=== PATIENT | female | born 1970 | race African-American/Black ===

== ENCOUNTER 2017-09-24 11:46 | Inpatient (IN) | payer OTHER ==
[2017-09-24 11:54] VITALS: BMI 25.5
--- NOTE | 2017-09-24 15:25 | HP ---
CIWA Score - CIWA Score Nausea/Vomitin Muscle Tremors: 3 Anxiety: 3 Agitation: 3 Paroxysmal Sweats: 2 Orientation: 0-Oriented Tacttile Disturbances: 2-Mild Itch/Numbness/Burn Auditory Disturbances: 2-Mild Harshness/Frighten Visual Disturbances: 2-Mild Sensitivity Headache: 2-Mild CIWA-Ar Total Score: 22 Admission ROS BHS - HPI Chief Complaint: I NEED TO STOP DRINKING ALCOHOL AND COCAINE Allergies/Adverse Reactions: Allergies Allergy/AdvReac Type Severity Reaction Status Date / Time No Known Allergies Allergy Verified 09/24/17 15:23 History of Present Illness: THIS 46 YEARS OLD FEMALE WITH ALCOHOL AND CCOAINE DEPENDENCE,SEEKIG DETOX, WITHDRAWAL SYMPTOM,LAST DETOX 07/22 [facility], [facility] MULTIPLE ADMISSIONS IN DETOX TRAUMA TO RIGHT ORBIT 10 DAYS AGO SEEN IN [facility] HAD CAT SCAN DONE NEGATIVE ANXIETY,DEPRESSION,INSOMNIA NICOTINE DEPENDENCE WEIGHT LOSS LONGEST PERIOD OF SOBRIETY 3 YEARS Exam Limitations: No Limitations - Ebola screening Have you traveled outside of the country in the last 21 days: No Have you had contact with anyone from an Ebola affected area: No Have you been sick,other than usual withdrawal symptoms: No Do you have a fever: No - Review of Systems Constitutional: Loss of Appetite, Malaise, Night Sweats, Changes in sleep, Weakness, Unintentional Wgt. Loss EENT: reports: Nose Congestion (ECCHYMOSIS OF ORBIT SUBCONJUNCTIVAL HEMORRHAGE RIGHT MOVEMENT OF EYE BALL NO LIMITAION NO DIPLOPIA VISION NORMAL NO NUMBNESS OF INFRAORBITAL AREA) Respiratory: reports: No Symptoms reported Cardiac: reports: Palpitations GI: reports: Diarrhea, Nausea, Vomiting, Abdominal cramping : reports: No Symptoms Reported Musculoskeletal: reports: Back Pain, Muscle Pain Integumentary: reports: Dryness Neuro: reports: Tremors Endocrine: reports: No Symptoms Reported Hematology: reports: No Symptoms Reported Psychiatric: reports: Anxious (INSOMNIA), Depressed Patient History - Patient Medical History Hx Anemia: Yes (NO MED) Hx Asthma: No Hx Chronic Obstructive Pulmonary Disease (COPD): No Hx Cancer: No Hx Cardiac Disorders: No Hx Congestive Heart Failure: No Hx Hypertension: No Hx Hypercholesterolemia: No Hx Pacemaker: No HX Cerebrovascular Accident: No Hx Seizures: No Hx Dementia: No Hx Diabetes: No Hx Gastrointestinal Disorders: No Hx Liver Disease: No Hx Genitourinary Disorders: No Hx Sexually Transmitted Disorders: No Hx Renal Disease (ESRD): No Hx Thyroid Disease: No Hx Human Immunodeficiency Virus (HIV): No (LAST TESTED 07/22 NRGATIVE) Hx Hepatitis C: No (last tested 04/18) Hx Depression: Yes (INSOMNIA) Hx Suicide Attempt: No Hx Bipolar Disorder: No Hx Schizophrenia: No Other Medical History: ANXIETY,WEIGHT LOSS,NO SUICIDAL,NO HOMICIDAL - Patient Surgical History Past Surgical History: No Hx Neurologic Surgery: No Hx Cataract Extraction: No Hx Cardiac Surgery: No Hx Lung Surgery: No Hx Breast Surgery: No Hx Breast Biopsy: No Hx Abdominal Surgery: No Hx Appendectomy: No Hx Cholecystectomy: No Hx Genitourinary Surgery: No Hx Section: No Hx Orthopedic Surgery: No Anesthesia Reaction: No - PPD History Previous Implant?: Yes Documented Results: Negative w/o proof Implanted On Prior [facility] Admission?: Yes Date: 08/05/15 PPD to be Administered?: Yes - Reproductive History Patient is a Female of Child Bearing Age (11 -55 yrs old): Yes Last Menstrual Period: 07/08/15 Patient : No - Smoking Cessation Smoking history: Current every day smoker Have you smoked in the past 12 months: Yes Aproximately how many cigarettes per day: 10 Hx Chewing Tobacco Use: No Initiated information on smoking cessation: Yes 'Breaking Loose' booklet given: 09/24/17 - Substance & Tx. History Hx Alcohol Use: Yes Hx Substance Use: Yes Substance Use Type: Alcohol, Cocaine Hx Substance Use Treatment: Yes (07/22 [facility]) - Substances Abused Alcohol Route: Oral Frequency: Daily Amount used: 2 pints vodka/12 pk beers Age of first use: 22 Date of Last Use: 09/24/17 Crack Route: Smoking Frequency: Daily Amount used: $100 Age of first use: 40 Date of Last Use: 09/22/17 Family Disease History - Family Disease History Family Disease History: Heart Disease: Mother (colon; HTN), CA: Father (prostate ), Mother Admission Physical Exam BHS - Vital Signs Vital Signs: Vital Signs - 24 hr 09/24/17 11:47 Temperature 96.9 F L Pulse Rate 109 H Respiratory 18 Rate Blood Pressure 145/97 - Physical General Appearance: Yes: Moderate Distress, Tremorous, Irritable, Sweating, Anxious HEENTM: Yes: Normal ENT Inspection, CYNDI, Pharynx Normal, Other (ECCHYMOSIS OF ORBIT VISION [place] SUBCONJUNCTIVAL HEMORRHAGE RIGHT NO DIPLOPIA NO NUMBNESS OF INFRAORBITAL AREA MOVEMENT OF EYE BALL NO LIMITATION) Respiratory: Yes: Lungs Clear, Normal Breath Sounds, No Respiratory Distress Neck: Yes: Within Normal Limits, Supple, Trachea in good position Breast: Yes: Breast Exam Deferred Cardiology: Yes: Tachycardia Abdominal: Yes: Within Normal Limits, Normal Bowel Sounds, Non Tender, Soft Genitourinary: Yes: Within Normal Limits Back: Yes: Muscle Spasm Musculoskeletal: Yes: Back pain, Muscle Pain Extremities: Yes: Normal Range of Motion, Tremors Neurological: Yes: cylinder filler II-XII NML intact, Fully Oriented, Alert, Motor Strength 5/5 Integumentary: Yes: Dry Lymphatic: Yes: Within Normal Limits - Diagnostic (1) Alcohol dependence with uncomplicated withdrawal Current Visit: Yes Status: Acute (2) Cocaine dependence Current Visit: Yes Status: Acute (3) Nicotine dependence Current Visit: Yes Status: Acute Qualifiers: Nicotine product type: cigarettes Substance use status: uncomplicated Qualified Code(s): F17.210 - Nicotine dependence, cigarettes, uncomplicated (4) History of anemia Current Visit: Yes Status: Acute (5) Weight loss Current Visit: Yes Status: Acute (6) Contusion of orbit Current Visit: Yes Status: Acute (7) Subconjunctival hemorrhage of right eye Current Visit: Yes Status: Acute (8) Insomnia secondary to depression with anxiety Current Visit: Yes Status: Acute Cleared for Admission [facility] - Detox or Rehab [facility] Level of Care: Medically Managed Detox Regimen/Protocol: Librium [facility] Breath Alcohol Content Breath Alcohol Content: 0.105 Urine Drug Screen - Results Drug Screen Negative: No Urine Drug Screen Results: ITA-Cocaine
[2017-09-24] MEDS ORDERED: MAGNESIUM HYDROX 2400MG/30ML ORAL SUSPENSION 30 ML CUP PO PRN (15:47)
[2017-09-24] MEDS ORDERED: MAG HYDROX/AL HYDROX/SIMETH 30 ML UNIT-DOSE CUP PO PRN (15:47)
[2017-09-24] MEDS ORDERED: P-EPHED 60MG/TRIPROLIDI 2.5MG TABLET PO PRN (15:47)
[2017-09-24] MEDS ORDERED: MAGNESIUM CITRATE 300 ML BOTTLE PO PRN (15:47)
[2017-09-24] MEDS ORDERED: MENTHOL/PHENOL 1 EACH UD MM PRN (15:47)
[2017-09-24] MEDS ORDERED: guaiFENesin/D-METHORPHAN HB 10 ML UNIT-DOSE CUPS PO PRN (15:47)
[2017-09-24] MEDS ORDERED: NICOTINE POLACRILEX 2 MG GUM BC PRN (15:47)
[2017-09-24] MEDS ORDERED: hydrOXYzine PAMOATE 25 MG CAPSULE (FP) PO PRN (15:47)
[2017-09-24] MEDS ORDERED: ACETAMINOPHEN 325 MG TABLET (FP) PO PRN (15:47)
[2017-09-24] MEDS ORDERED: chlordiazePOXIDE HCL 25 MG CAPSULE PO PRN (15:47)
[2017-09-24] MEDS ORDERED: LOPERAMIDE HCL 2 MG CAPSULE PO PRN (15:47)
[2017-09-24] MEDS ORDERED: IBUPROFEN 400 MG TABLET (FP) PO PRN (15:47)
[2017-09-24] MEDS ORDERED: chlordiazePOXIDE HCL 25 MG CAPSULE PO ONE (16:30)
[2017-09-24] MEDS: NICOTINE 21 MG/24 HOURS TOPICAL PATCH TD SCH (17:25)
[2017-09-24] MEDS: chlordiazePOXIDE HCL 25 MG CAPSULE PO SCH ×2 (17:25→22:18)
[2017-09-24] MEDS: THIAMINE HCL 100 MG TABLET (FP) PO SCH (22:18)
[2017-09-24] MEDS: MELATONIN 5 MG TABLETS PO SCH (22:18)
[2017-09-24 23:30] LABS: URINE APPEARANCE CLEAR; URINE BILIRUBIN NEGATIVE (<2.0 mg/dL); URINE BLOOD NEGATIVE (NEGATIVE); URINE COLOR STRAW; URINE GLUCOSE (UA) NEGATIVE (NEGATIVE); URINE KETONE NEGATIVE (NEGATIVE); URINE LEUK ESTERASE NEGATIVE (NEGATIVE); URINE NITRITE NEGATIVE (NEGATIVE); URINE PROTEIN NEGATIVE (NEGATIVE); URINE UROBILINOGEN NEGATIVE mg/dL (0.2-1.0)
[2017-09-25] MEDS: chlordiazePOXIDE HCL 25 MG CAPSULE PO SCH ×4 (07:19→22:50)
[2017-09-25 09:53] LABS: HEMATOCRIT 35.2 % (32.4-45.2); HEMOGLOBIN 11.5 GM/dL (10.7-15.3); MCH 30.5 pg (25.7-33.7); MCHC 32.8 g/dl (32.0-36.0); MEAN CELL VOLUME 93.2 fl (80-96); MEAN PLT VOLUME 8.2 fl (7.5-11.1); PLATELET COUNT 312 K/MM3 (134-434); RBC 3.78 M/mm3 (3.60-5.2); WHITE BLOOD COUNT 6.4 K/mm3 (4.0-10.0)
[2017-09-25 10:11] LABS: CHLORIDE 104 mmol/L (98-107); POTASSIUM 3.5 mmol/L (3.5-5.1); SODIUM 140 mmol/L (136-145)
[2017-09-25] MEDS: PRENATAL VITAMINS W/ FOLIC ACID TABLET (FP) PO SCH (10:21)
[2017-09-25] MEDS: NICOTINE 21 MG/24 HOURS TOPICAL PATCH TD SCH (10:21)
[2017-09-25 10:34] LABS: ALBUMIN 3.5 g/dl (3.4-5.0); ALK PHOS 94 U/L (45-117); ANION GAP 14 (8-16); BILIRUBIN,TOTAL 0.4 mg/dL (0.2-1.0); BLOOD UREA NITROGEN 3 mg/dL (7-18); CALCIUM 8.6 mg/dL (8.5-10.1); CO2 22 mmol/L (21-32); CREATININE 0.7 mg/dL (0.55-1.02); GLUCOSE,RANDOM 145 mg/dL (74-106); SGOT/AST 34 U/L (15-37); SGPT/ALT 31 U/L (12-78)
--- NOTE | 2017-09-25 14:54 | PN ---
S CIWA - CIWA Score Nausea/Vomitin Muscle Tremors: 3 Anxiety: 3 Agitation: 3 Paroxysmal Sweats: 3 Orientation: 0-Oriented Tacttile Disturbances: 0-None Auditory Disturbances: 0-None Visual Disturbances: 0-None Headache: 0-None Present CIWA-Ar Total Score: 15 S Progress Note (SOAP) Subjective: shakes sweats sleep disturbance Objective: 09/25/17 14:51 A 7 O x 3 R eye redness and R eye periorbital echymosis Vital Signs Temperature 97.1 F L 09/25/17 14:00 Pulse Rate 86 09/25/17 14:00 Respiratory Rate 16 09/25/17 14:00 Blood Pressure 147/88 09/25/17 14:00 O2 Sat by Pulse Oximetry (%) Laboratory Last Values WBC 6.4 K/mm3 (4.0-10.0) D 09/25/17 06:00 RBC 3.78 M/mm3 (3.60-5.2) 09/25/17 06:00 Hgb 11.5 GM/dL (10.7-15.3) 09/25/17 06:00 Hct 35.2 % (32.4-45.2) 09/25/17 06:00 MCV 93.2 fl (80-96) 09/25/17 06:00 MCH 30.5 pg (25.7-33.7) 09/25/17 06:00 MCHC 32.8 g/dl (32.0-36.0) 09/25/17 06:00 RDW 15.0 % (11.6-15.6) 09/25/17 06:00 Plt Count 312 K/MM3 (134-434) D 09/25/17 06:00 MPV 8.2 fl (7.5-11.1) 09/25/17 06:00 Sodium 140 mmol/L (136-145) 09/25/17 06:00 Potassium 3.5 mmol/L (3.5-5.1) 09/25/17 06:00 Chloride 104 mmol/L (98-107) 09/25/17 06:00 Carbon Dioxide 22 mmol/L (21-32) 09/25/17 06:00 Anion Gap 14 (8-16) 09/25/17 06:00 BUN 3 mg/dL (7-18) L 09/25/17 06:00 Creatinine 0.7 mg/dL (0.55-1.02) 09/25/17 06:00 Creat Clearance w eGFR > 60 (>60) 09/25/17 06:00 Random Glucose 145 mg/dL (74-106) H 09/25/17 06:00 Calcium 8.6 mg/dL (8.5-10.1) 09/25/17 06:00 Total Bilirubin 0.4 mg/dL (0.2-1.0) D 09/25/17 06:00 AST 34 U/L (15-37) 09/25/17 06:00 ALT 31 U/L (12-78) 09/25/17 06:00 Alkaline Phosphatase 94 U/L (45-117) 09/25/17 06:00 Total Protein 8.0 g/dl (6.4-8.2) 09/25/17 06:00 Albumin 3.5 g/dl (3.4-5.0) 09/25/17 06:00 Urine Color Straw 09/24/17 Unknown Urine Appearance Clear 09/24/17 Unknown Urine pH 6.0 (5.0-8.0) 09/24/17 Unknown Ur Specific [place] 1.004 (1.001-1.035) 09/24/17 Unknown Urine Protein Negative (NEGATIVE) 09/24/17 Unknown Urine Glucose (UA) Negative (NEGATIVE) 09/24/17 Unknown Urine Ketones Negative (NEGATIVE) 09/24/17 Unknown Urine Blood Negative (NEGATIVE) 09/24/17 Unknown Urine Nitrite Negative (NEGATIVE) 09/24/17 Unknown Urine Bilirubin Negative (<2.0 mg/dL) 09/24/17 Unknown Urine Urobilinogen Negative mg/dL (0.2-1.0) 09/24/17 Unknown Ur Leukocyte Esterase Negative (NEGATIVE) 09/24/17 Unknown labs noted Assessment: 09/25/17 14:54 withdrawal sx Plan: continue detox
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
[2017-09-25] MEDS: THIAMINE HCL 100 MG TABLET (FP) PO SCH (22:50)
[2017-09-25] MEDS: ZOLPIDEM TARTRATE 5 MG TABLET PO PRN (22:50)
[2017-09-25] MEDS: MELATONIN 5 MG TABLETS PO SCH (22:51)
[2017-09-26] MEDS: chlordiazePOXIDE HCL 25 MG CAPSULE PO SCH ×2 (06:08→10:28)
[2017-09-26] MEDS: PRENATAL VITAMINS W/ FOLIC ACID TABLET (FP) PO SCH (10:28)
[2017-09-26] MEDS: NICOTINE 21 MG/24 HOURS TOPICAL PATCH TD SCH (10:28)
--- NOTE | 2017-09-26 10:56 | PN ---
[facility] CIWA - CIWA Score Nausea/Vomitin-Mild Nausea/No Vomiting Muscle Tremors: 4-Moderate,w/Arms Extend Anxiety: 4-Mod. Anxious/Guarded Agitation: 4-Moderately Restless Paroxysmal Sweats: 1-Minimal Palms Moist Orientation: 0-Oriented Tacttile Disturbances: 0-None Auditory Disturbances: 0-None Visual Disturbances: 0-None Headache: 0-None Present CIWA-Ar Total Score: 14 BHS Progress Note (SOAP) Subjective: mild gi distress sweat tremor sleeplessness anxiety irritable restlessness Objective: 09/26/17 10:55 Vital Signs Temperature 97.9 F 09/26/17 06:00 Pulse Rate 83 09/26/17 07:27 Respiratory Rate 18 09/26/17 07:27 Blood Pressure 138/75 09/26/17 07:27 O2 Sat by Pulse Oximetry (%) Laboratory Last Values WBC 6.4 K/mm3 (4.0-10.0) D 09/25/17 06:00 RBC 3.78 M/mm3 (3.60-5.2) 09/25/17 06:00 Hgb 11.5 GM/dL (10.7-15.3) 09/25/17 06:00 Hct 35.2 % (32.4-45.2) 09/25/17 06:00 MCV 93.2 fl (80-96) 09/25/17 06:00 MCH 30.5 pg (25.7-33.7) 09/25/17 06:00 MCHC 32.8 g/dl (32.0-36.0) 09/25/17 06:00 RDW 15.0 % (11.6-15.6) 09/25/17 06:00 Plt Count 312 K/MM3 (134-434) D 09/25/17 06:00 MPV 8.2 fl (7.5-11.1) 09/25/17 06:00 Sodium 140 mmol/L (136-145) 09/25/17 06:00 Potassium 3.5 mmol/L (3.5-5.1) 09/25/17 06:00 Chloride 104 mmol/L (98-107) 09/25/17 06:00 Carbon Dioxide 22 mmol/L (21-32) 09/25/17 06:00 Anion Gap 14 (8-16) 09/25/17 06:00 BUN 3 mg/dL (7-18) L 09/25/17 06:00 Creatinine 0.7 mg/dL (0.55-1.02) 09/25/17 06:00 Creat Clearance w eGFR > 60 (>60) 09/25/17 06:00 Random Glucose 145 mg/dL (74-106) H 09/25/17 06:00 Calcium 8.6 mg/dL (8.5-10.1) 09/25/17 06:00 Total Bilirubin 0.4 mg/dL (0.2-1.0) D 09/25/17 06:00 AST 34 U/L (15-37) 09/25/17 06:00 ALT 31 U/L (12-78) 09/25/17 06:00 Alkaline Phosphatase 94 U/L (45-117) 09/25/17 06:00 Total Protein 8.0 g/dl (6.4-8.2) 09/25/17 06:00 Albumin 3.5 g/dl (3.4-5.0) 09/25/17 06:00 Urine Color Straw 09/24/17 Unknown Urine Appearance Clear 09/24/17 Unknown Urine pH 6.0 (5.0-8.0) 09/24/17 Unknown Ur Specific [place] 1.004 (1.001-1.035) 09/24/17 Unknown Urine Protein Negative (NEGATIVE) 09/24/17 Unknown Urine Glucose (UA) Negative (NEGATIVE) 09/24/17 Unknown Urine Ketones Negative (NEGATIVE) 09/24/17 Unknown Urine Blood Negative (NEGATIVE) 09/24/17 Unknown Urine Nitrite Negative (NEGATIVE) 09/24/17 Unknown Urine Bilirubin Negative (<2.0 mg/dL) 09/24/17 Unknown Urine Urobilinogen Negative mg/dL (0.2-1.0) 09/24/17 Unknown Ur Leukocyte Esterase Negative (NEGATIVE) 09/24/17 Unknown RPR Titer Nonreactive (NONREACTIVE) 09/25/17 06:00 lab noted Assessment: 09/26/17 10:55 withdrawal sx Plan: continue detox
[2017-09-26] MEDS: chlordiazePOXIDE 5 MG CAPSULE PO SCH ×2 (17:54→22:24)
[2017-09-26] MEDS: THIAMINE HCL 100 MG TABLET (FP) PO SCH (22:24)
[2017-09-26] MEDS: MELATONIN 5 MG TABLETS PO SCH (22:24)
[2017-09-26] MEDS: ZOLPIDEM TARTRATE 5 MG TABLET PO PRN (22:25)
[2017-09-27] MEDS: chlordiazePOXIDE 5 MG CAPSULE PO SCH ×2 (06:24→10:18)
--- NOTE | 2017-09-27 09:15 | EKG ---
Test Reason : Blood Pressure : / mmHG Vent. Rate : 099 BPM Atrial Rate : 099 BPM P-R Int : 168 ms QRS Dur : 086 ms QT Int : 356 ms P-R-T Axes : 045 011 042 degrees QTc Int : 456 ms NORMAL SINUS RHYTHM POSSIBLE LEFT ATRIAL ENLARGEMENT BORDERLINE ECG NO PREVIOUS ECGS AVAILABLE Confirmed by RACHEL FARIAS MD ([id number]) on 09/27/2017 9:15:05 AM Referred By: Confirmed By:RACHEL FARIAS MD
--- NOTE | 2017-09-27 09:50 | PN ---
S Progress Note (SOAP) Subjective: ALERT,NO COMPLAINT Objective: 09/27/17 09:49 Vital Signs Temperature 97.7 F 09/27/17 06:53 Pulse Rate 84 09/27/17 06:53 Respiratory Rate 16 09/27/17 06:53 Blood Pressure 134/89 09/27/17 06:53 O2 Sat by Pulse Oximetry (%) Assessment: 09/27/17 09:49 STABLE,NO WITHDRAWAL SYMPTOM Plan: DISCHARGE TODAY FOR REVELATION
--- NOTE | 2017-09-27 09:55 | DS ---
[facility] Detox Discharge Summary Admission Date: 09/24/17 Discharge Date: 09/27/17 - History Present History: Alcohol Dependence, Cocaine Dependence Additional Comments: FOLLOW UP WITH [facility] Pertinent Past History: CONTUSION OF RIGHT ORBIT HISTORY OF ANEMIA NICOTINE DEPENDENCE WEIGHT LOSS - Physical Exam Results Vital Signs: Vital Signs Temperature 97.7 F 09/27/17 06:53 Pulse Rate 84 09/27/17 06:53 Respiratory Rate 16 09/27/17 06:53 Blood Pressure 134/89 09/27/17 06:53 O2 Sat by Pulse Oximetry (%) Pertinent Admission Physical Exam Findings: WITHDRAWAL SIGNS AND SYMPTOM Vital Signs Temperature 97.7 F 09/27/17 06:53 Pulse Rate 84 09/27/17 06:53 Respiratory Rate 16 09/27/17 06:53 Blood Pressure 134/89 09/27/17 06:53 O2 Sat by Pulse Oximetry (%) - Treatment Hospital Course: Detox Protocol Followed, Detoxed Safely, Responded well, Discharged Condition Good, Rehab Referral Accepted Patient has Accepted a Rehab Referral to: [facility] - Medication Discharge Medications: Ambulatory Orders NK [No Known Home Medication] 08/03/15 - Diagnosis (1) Alcohol dependence with uncomplicated withdrawal Current Visit: Yes Status: Acute (2) Cocaine dependence Current Visit: Yes Status: Acute (3) Nicotine dependence Current Visit: Yes Status: Acute Qualifiers: Nicotine product type: cigarettes Substance use status: uncomplicated Qualified Code(s): F17.210 - Nicotine dependence, cigarettes, uncomplicated (4) History of anemia Current Visit: Yes Status: Acute (5) Weight loss Current Visit: Yes Status: Acute (6) Contusion of orbit Current Visit: Yes Status: Acute (7) Subconjunctival hemorrhage of right eye Current Visit: Yes Status: Acute (8) Insomnia secondary to depression with anxiety Current Visit: Yes Status: Acute - AMA Did Patient Leave Against Medical Advice: No
[2017-09-27 09:57] VITALS: TEMP 98.1
[2017-09-27] MEDS: PRENATAL VITAMINS W/ FOLIC ACID TABLET (FP) PO SCH (10:17)
[2017-09-27] MEDS: NICOTINE 21 MG/24 HOURS TOPICAL PATCH TD SCH (10:18)
[2017-09-27 13:24] VITALS: BP 117/74; PULSE 99
[2017-09-27] MEDS ORDERED: chlordiazePOXIDE HCL 10 MG CAPSULE PO SCH (17:00)
== END 2017-09-27 14:20 | disposition other institution (70) | DRG 774 ==
LOC: YASAS 11:46 → Y6N 15:39
PROVIDERS: ADMIT Internal Medicine; ATTEND Internal Medicine
PROC: HZ2ZZZZ Detoxification Services for Substance Abuse Treatment (ICD-10-PCS; principal; 2017-09-24)
DX: F10.230 Alcohol dependence with withdrawal, uncomplicated (principal); F10.24 Alcohol dependence with alcohol-induced mood disorder; F14.20 Cocaine dependence, uncomplicated; F17.210 Nicotine dependence, cigarettes, uncomplicated; F51.05 Insomnia due to other mental disorder; G47.00 Insomnia, unspecified; R00.0 Tachycardia, unspecified; H11.31 Conjunctival hemorrhage, right eye; S05.11XD Contusion of eyeball and orbital tissues, right eye, subsequent encounter; Y04.0XXD Assault by unarmed brawl or fight, subsequent encounter; Z86.2 Personal history of diseases of the blood and blood-forming organs and certain disorders involving the immune mechanism; Z87.898 Personal history of other specified conditions; Z95.0 Presence of cardiac pacemaker
CPT/HCPCS: 36415; 80053; 81003; 85027; 86593; 93005; 93010

== ENCOUNTER 2018-04-30 09:51 | Inpatient (IN) | payer OTHER ==
[2018-04-30 10:05] VITALS: BMI 23.5
--- NOTE | 2018-04-30 10:27 | HP ---
CIWA Score - CIWA Score Nausea/Vomitin Muscle Tremors: 4-Moderate,w/Arms Extend Anxiety: 4-Mod. Anxious/Guarded Agitation: 4-Moderately Restless Paroxysmal Sweats: 1-Minimal Palms Moist Orientation: 1-Uncertain about Date Tacttile Disturbances: 1-Very Mild Itch/Numbness Auditory Disturbances: 0-None Visual Disturbances: 0-None Headache: 2-Mild CIWA-Ar Total Score: 19 Admission ROS BHS - HPI Chief Complaint: I need help, I really can't stop drinking, I should have done rehab last time, I got to get something soon, I feel sick Allergies/Adverse Reactions: Allergies Allergy/AdvReac Type Severity Reaction Status Date / Time No Known Allergies Allergy Verified 04/30/18 10:02 History of Present Illness: 47yo woman here for detox from alcohol, also using crack. This is one of several admissions for treatment. Denies seizures but has had black outs. tremorous, restless Exam Limitations: Clinical Condition - Ebola screening Have you been sick,other than usual withdrawal symptoms: No - Review of Systems Constitutional: Chills, Loss of Appetite, Malaise, Changes in sleep, Weakness, Unintentional Wgt. Loss EENT: reports: Blurred Vision Respiratory: reports: No Symptoms reported Cardiac: reports: No Symptoms Reported GI: reports: Nausea, Poor Appetite, Poor Fluid Intake, Indigestion, Abdominal cramping : reports: Frequency Musculoskeletal: reports: No Symptoms Reported Integumentary: reports: Rash (mild facial rash) Neuro: reports: Headache, Tremors Endocrine: reports: No Symptoms Reported Hematology: reports: No Symptoms Reported Psychiatric: reports: Judgement Intact, Mood/Affect Appropiate, Anxious Other Systems: Reviewed and Negative Patient History - Patient Medical History Hx Anemia: No Hx Asthma: No Hx Chronic Obstructive Pulmonary Disease (COPD): No Hx Cancer: No Hx Cardiac Disorders: No Hx Congestive Heart Failure: No Hx Hypertension: Yes (when detox) Hx Hypercholesterolemia: No Hx Pacemaker: No HX Cerebrovascular Accident: No Hx Seizures: No Hx Dementia: No Hx Diabetes: No Hx Gastrointestinal Disorders: No Hx Liver Disease: No Hx Genitourinary Disorders: No Hx Sexually Transmitted Disorders: No Hx Renal Disease (ESRD): No Hx Thyroid Disease: No Hx Human Immunodeficiency Virus (HIV): No (LAST TESTED 07/22 NRGATIVE) Hx Hepatitis C: No (last tested 04/18) Hx Depression: Yes (with anxiety, insomnia) Hx Suicide Attempt: No Hx Bipolar Disorder: No Hx Schizophrenia: No Other Medical History: rosacea - Patient Surgical History Past Surgical History: No Hx Neurologic Surgery: No Hx Cataract Extraction: No Hx Cardiac Surgery: No Hx Lung Surgery: No Hx Breast Surgery: No Hx Breast Biopsy: No Hx Abdominal Surgery: No Hx Appendectomy: No Hx Cholecystectomy: No Hx Genitourinary Surgery: No Hx Section: No Hx Orthopedic Surgery: No Other Surgical History: L foot sx in 2016 from dog bite. Anesthesia Reaction: No - PPD History Previous Implant?: Yes Documented Results: Negative w/proof Implanted On Prior [facility] Admission?: Yes Date: 09/26/17 Results: negative PPD to be Administered?: No - Reproductive History Patient is a Female of Child Bearing Age (11 -55 yrs old): Yes Last Menstrual Period: 04/06/18 Patient : No - Smoking Cessation Smoking history: Current every day smoker Have you smoked in the past 12 months: Yes Aproximately how many cigarettes per day: 20 Hx Chewing Tobacco Use: No Initiated information on smoking cessation: Yes 'Breaking Loose' booklet given: 04/30/18 (give on floor) - Substance & Tx. History Hx Alcohol Use: Yes Hx Substance Use: Yes Substance Use Type: Alcohol, Cocaine Hx Substance Use Treatment: Yes (detox, rehab) - Substances Abused Alcohol Route: Oral Frequency: Daily Amount used: 2 pints of vodka, 12 cans of beer (24 ounces ) Age of first use: 21 Date of Last Use: 04/30/18 Crack Route: Smoking Frequency: Daily Amount used: $100 Age of first use: 37 Date of Last Use: 04/30/18 Family Disease History - Family Disease History Family Disease History: Heart Disease: Mother (,colon; HTN), [place]: Father (decedased, prostate), Mother, Other: Brother (three - healthy (one drinks)), Sister (one - healthy) Admission Physical Exam BHS - Vital Signs Vital Signs: Vital Signs - 24 hr 04/30/18 09:55 Temperature 98.3 F Pulse Rate 86 Respiratory 18 Rate Blood Pressure 143/103 H - Physical General Appearance: Yes: Nourished, Appropriately Dressed, Moderate Distress, Thin, Tremorous, Sweating, Anxious HEENTM: Yes: EOMI, Hearing grossly Normal, Normocephalic, Normal Voice, Pharynx Normal Respiratory: Yes: Normal Breath Sounds, No Respiratory Distress Neck: Yes: No masses,lesions,Nodules, Supple Breast: Yes: Breast Exam Deferred Cardiology: Yes: Regular Rhythm, Regular Rate Abdominal: Yes: Flat Genitourinary: Yes: Frequency Back: Yes: Normal Inspection Musculoskeletal: Yes: full range of Motion, Gait Steady Extremities: Yes: Normal Capillary Refill, Normal Inspection, Normal Range of Motion, Non-Tender, Tremors Neurological: Yes: Alert, Motor Strength 5/5, Normal Mood/Affect, Normal Response Integumentary: Yes: Normal Color, Warm, Rash (mild erythematous rash over nose) Lymphatic: Yes: Within Normal Limits - Diagnostic (1) Alcohol dependence with uncomplicated withdrawal Current Visit: Yes Status: Acute (2) Cocaine dependence Current Visit: Yes Status: Chronic (3) Weight loss Current Visit: Yes Status: Chronic (4) Nicotine dependence Current Visit: Yes Status: Chronic Qualifiers: Nicotine product type: cigarettes Substance use status: uncomplicated Qualified Code(s): F17.210 - Nicotine dependence, cigarettes, uncomplicated (5) Rosacea Current Visit: Yes Status: Chronic Cleared for Admission [facility] - Detox or Rehab [facility] Level of Care: Medically Managed Detox Regimen/Protocol: Librium [facility] Breath Alcohol Content Breath Alcohol Content: 0 Urine Pregancy Test - Result Urine Test Results: Negative- NO Line Present Urine Drug Screen - Results Drug Screen Negative: No Urine Drug Screen Results: ITA-Cocaine, BZO-Benzodiazepines
[2018-04-30] MEDS ORDERED: ACETAMINOPHEN 325 MG TABLET (FP) PO PRN (10:33)
[2018-04-30] MEDS ORDERED: chlordiazePOXIDE HCL 25 MG CAPSULE PO PRN (10:33)
[2018-04-30] MEDS ORDERED: IBUPROFEN 400 MG TABLET (FP) PO PRN (10:33)
[2018-04-30] MEDS ORDERED: P-EPHED 60MG/TRIPROLIDI 2.5MG TABLET PO PRN (10:33)
[2018-04-30] MEDS ORDERED: guaiFENesin/D-METHORPHAN HB 10 ML UNIT-DOSE CUPS PO PRN (10:33)
[2018-04-30] MEDS ORDERED: NICOTINE POLACRILEX 4 MG GUM BC PRN (10:33)
[2018-04-30] MEDS ORDERED: MAGNESIUM HYDROX 2400MG/30ML ORAL SUSPENSION 30 ML CUP PO PRN (10:33)
[2018-04-30] MEDS ORDERED: hydrOXYzine PAMOATE 25 MG CAPSULE (FP) PO PRN (10:33)
[2018-04-30] MEDS ORDERED: LOPERAMIDE HCL 2 MG CAPSULE PO PRN (10:33)
[2018-04-30] MEDS ORDERED: MAG HYDROX/AL HYDROX/SIMETH 30 ML UNIT-DOSE CUP PO PRN (10:33)
[2018-04-30] MEDS ORDERED: MAGNESIUM CITRATE 300 ML BOTTLE PO PRN (10:33)
[2018-04-30] MEDS ORDERED: MENTHOL/PHENOL 1 EACH UD MM PRN (10:33)
[2018-04-30] MEDS ORDERED: COLLOIDAL OATMEAL 1 BAR EACH TP PRN (10:53)
[2018-04-30] MEDS ORDERED: chlordiazePOXIDE HCL 25 MG CAPSULE PO ONE (11:15)
[2018-04-30] MEDS: metroNIDAZOLE 1% TOPICAL CREAM 60 GM/TUBE TP SCH ×2 (11:25→22:32)
[2018-04-30] MEDS: chlordiazePOXIDE HCL 25 MG CAPSULE PO SCH ×2 (17:11→22:32)
[2018-04-30 18:24] LABS: URINE APPEARANCE SLCLOUDY; URINE BILIRUBIN NEGATIVE (<2.0 mg/dL); URINE COLOR YELLOW; URINE GLUCOSE (UA) NEGATIVE (NEGATIVE); URINE KETONE NEGATIVE (NEGATIVE); URINE LEUK ESTERASE NEGATIVE (NEGATIVE); URINE NITRITE NEGATIVE (NEGATIVE); URINE PROTEIN 1+ (NEGATIVE); URINE UROBILINOGEN NEGATIVE mg/dL (0.2-1.0)
[2018-04-30 18:33] LABS: EPI CELLS FEW /HPF (FEW)
[2018-04-30] MEDS ORDERED: MELATONIN 5 MG TABLETS PO PRN (22:00)
[2018-04-30] MEDS: THIAMINE HCL 100 MG TABLET (FP) PO SCH (22:32)
[2018-05-01] MEDS: chlordiazePOXIDE HCL 25 MG CAPSULE PO SCH ×4 (05:54→22:33)
[2018-05-01] MEDS ORDERED: PRENATAL VITAMINS W/ FOLIC ACID TABLET (FP) PO SCH (10:00)
[2018-05-01] MEDS: metroNIDAZOLE 1% TOPICAL CREAM 60 GM/TUBE TP SCH ×2 (10:26→22:33)
[2018-05-01 10:29] LABS: HEMATOCRIT 36.8 % (32.4-45.2); HEMOGLOBIN 12.1 GM/dL (10.7-15.3); MCH 31.2 pg (25.7-33.7); MCHC 32.8 g/dl (32.0-36.0); MEAN CELL VOLUME 95.2 fl (80-96); MEAN PLT VOLUME 8.4 fl (7.5-11.1); PLATELET COUNT 295 K/MM3 (134-434); RBC 3.86 M/mm3 (3.60-5.2); RDW 13.8 % (11.6-15.6); WHITE BLOOD COUNT 3.4 K/mm3 (4.0-10.0)
[2018-05-01 10:51] LABS: ALBUMIN 3.1 g/dl (3.4-5.0); ALK PHOS 59 U/L (45-117); ANION GAP 12 MMOL/L (8-16); BILIRUBIN,TOTAL 0.4 mg/dL (0.2-1); BLOOD UREA NITROGEN 9 mg/dL (7-18); CALCIUM 8.4 mg/dL (8.5-10.1); CHLORIDE 106 mmol/L (98-107); CO2 22 mmol/L (21-32); CREATININE 0.7 mg/dL (0.55-1.3); GLUCOSE,RANDOM 111 mg/dL (74-106); POTASSIUM 3.7 mmol/L (3.5-5.1); SGOT/AST 15 U/L (15-37); SGPT/ALT 18 U/L (13-61); SODIUM 141 mmol/L (136-145); TOT PROT 6.6 g/dl (6.4-8.2)
--- NOTE | 2018-05-01 12:04 | PN ---
[facility] CIWA - CIWA Score Nausea/Vomitin-Mild Nausea/No Vomiting Muscle Tremors: 3 Anxiety: 3 Agitation: 3 Paroxysmal Sweats: 1-Minimal Palms Moist Orientation: 1-Uncertain about Date Tacttile Disturbances: 1-Very Mild Itch/Numbness Auditory Disturbances: 1-Very Mild Visual Disturbances: 0-None Headache: 1-Very Mild CIWA-Ar Total Score: 15 BHS Progress Note (SOAP) Subjective: tremor sweat gi distress anxiety restlessness Objective: 05/01/18 12:03 Vital Signs Temperature 99.5 F 05/01/18 09:47 Pulse Rate 86 05/01/18 09:47 Respiratory Rate 16 05/01/18 09:47 Blood Pressure 115/80 05/01/18 09:47 O2 Sat by Pulse Oximetry (%) Laboratory Last Values WBC 3.4 K/mm3 (4.0-10.0) L 05/01/18 07:35 RBC 3.86 M/mm3 (3.60-5.2) 05/01/18 07:35 Hgb 12.1 GM/dL (10.7-15.3) 05/01/18 07:35 Hct 36.8 % (32.4-45.2) 05/01/18 07:35 MCV 95.2 fl (80-96) 05/01/18 07:35 MCH 31.2 pg (25.7-33.7) 05/01/18 07:35 MCHC 32.8 g/dl (32.0-36.0) 05/01/18 07:35 RDW 13.8 % (11.6-15.6) 05/01/18 07:35 Plt Count 295 K/MM3 (134-434) 05/01/18 07:35 MPV 8.4 fl (7.5-11.1) 05/01/18 07:35 Sodium 141 mmol/L (136-145) 05/01/18 07:35 Potassium 3.7 mmol/L (3.5-5.1) 05/01/18 07:35 Chloride 106 mmol/L (98-107) 05/01/18 07:35 Carbon Dioxide 22 mmol/L (21-32) 05/01/18 07:35 Anion Gap 12 MMOL/L (8-16) 05/01/18 07:35 BUN 9 mg/dL (7-18) 05/01/18 07:35 Creatinine 0.7 mg/dL (0.55-1.3) 05/01/18 07:35 Creat Clearance w eGFR > 60 (>60) 05/01/18 07:35 Random Glucose 111 mg/dL (74-106) H 05/01/18 07:35 Calcium 8.4 mg/dL (8.5-10.1) L 05/01/18 07:35 Total Bilirubin 0.4 mg/dL (0.2-1) 05/01/18 07:35 AST 15 U/L (15-37) 05/01/18 07:35 ALT 18 U/L (13-61) 05/01/18 07:35 Alkaline Phosphatase 59 U/L (45-117) 05/01/18 07:35 Total Protein 6.6 g/dl (6.4-8.2) 05/01/18 07:35 Albumin 3.1 g/dl (3.4-5.0) L 05/01/18 07:35 Urine Color Yellow 04/30/18 10:53 Urine Appearance Slcloudy 04/30/18 10:53 Urine pH 6.0 (5.0-8.0) 04/30/18 10:53 Ur Specific [place] 1.020 (1.010-1.035) 04/30/18 10:53 Urine Protein 1+ (NEGATIVE) H 04/30/18 10:53 Urine Glucose (UA) Negative (NEGATIVE) 04/30/18 10:53 Urine Ketones Negative (NEGATIVE) 04/30/18 10:53 Urine Blood Negative (NEGATIVE) 04/30/18 10:53 Urine Nitrite Negative (NEGATIVE) 04/30/18 10:53 Urine Bilirubin Negative (<2.0 mg/dL) 04/30/18 10:53 Urine Urobilinogen Negative mg/dL (0.2-1.0) 04/30/18 10:53 Ur Leukocyte Esterase Negative (NEGATIVE) 04/30/18 10:53 Urine WBC (Auto) 3 /hpf (3-5) 04/30/18 10:53 Urine RBC (Auto) 2 /hpf (0-3) 04/30/18 10:53 Ur Epithelial Cells Few /HPF (FEW) 04/30/18 10:53 RPR Titer Nonreactive (NONREACTIVE) 05/01/18 07:35 lab noted Assessment: 05/01/18 12:04 withdrawal sx Plan: continue detox
--- NOTE | 2018-05-01 13:51 | EKG ---
Test Reason : Blood Pressure : / mmHG Vent. Rate : 095 BPM Atrial Rate : 095 BPM P-R Int : 166 ms QRS Dur : 084 ms QT Int : 354 ms P-R-T Axes : 061 023 040 degrees QTc Int : 444 ms NORMAL SINUS RHYTHM POSSIBLE LEFT ATRIAL ENLARGEMENT SEPTAL INFARCT (CITED ON OR BEFORE 30-APR-2018) Confirmed by MD Wallace, Alhaji ([id number]) on 05/01/2018 1:50:46 PM Referred By: Nighat Bonds Confirmed By:Alhaji Gonsalez MD
[2018-05-01] MEDS: THIAMINE HCL 100 MG TABLET (FP) PO SCH (22:33)
[2018-05-02] MEDS: chlordiazePOXIDE HCL 25 MG CAPSULE PO SCH (06:00)
--- NOTE | 2018-05-02 10:54 | PN ---
[facility] CIWA - CIWA Score Nausea/Vomitin-Mild Nausea/No Vomiting Muscle Tremors: 3 Anxiety: 2 Agitation: 2 Paroxysmal Sweats: 1-Minimal Palms Moist Orientation: 0-Oriented Tacttile Disturbances: 1-Very Mild Itch/Numbness Auditory Disturbances: 1-Very Mild Visual Disturbances: 0-None Headache: 1-Very Mild CIWA-Ar Total Score: 12 BHS Progress Note (SOAP) Subjective: sweat tremor anxiety restlessness trouble sleep at night Objective: 05/02/18 10:54 Vital Signs Temperature 97.7 F 05/02/18 10:20 Pulse Rate 81 05/02/18 10:20 Respiratory Rate 18 05/02/18 10:20 Blood Pressure 121/72 05/02/18 10:20 O2 Sat by Pulse Oximetry (%) Laboratory Last Values WBC 3.4 K/mm3 (4.0-10.0) L 05/01/18 07:35 RBC 3.86 M/mm3 (3.60-5.2) 05/01/18 07:35 Hgb 12.1 GM/dL (10.7-15.3) 05/01/18 07:35 Hct 36.8 % (32.4-45.2) 05/01/18 07:35 MCV 95.2 fl (80-96) 05/01/18 07:35 MCH 31.2 pg (25.7-33.7) 05/01/18 07:35 MCHC 32.8 g/dl (32.0-36.0) 05/01/18 07:35 RDW 13.8 % (11.6-15.6) 05/01/18 07:35 Plt Count 295 K/MM3 (134-434) 05/01/18 07:35 MPV 8.4 fl (7.5-11.1) 05/01/18 07:35 Sodium 141 mmol/L (136-145) 05/01/18 07:35 Potassium 3.7 mmol/L (3.5-5.1) 05/01/18 07:35 Chloride 106 mmol/L (98-107) 05/01/18 07:35 Carbon Dioxide 22 mmol/L (21-32) 05/01/18 07:35 Anion Gap 12 MMOL/L (8-16) 05/01/18 07:35 BUN 9 mg/dL (7-18) 05/01/18 07:35 Creatinine 0.7 mg/dL (0.55-1.3) 05/01/18 07:35 Creat Clearance w eGFR > 60 (>60) 05/01/18 07:35 Random Glucose 111 mg/dL (74-106) H 05/01/18 07:35 Calcium 8.4 mg/dL (8.5-10.1) L 05/01/18 07:35 Total Bilirubin 0.4 mg/dL (0.2-1) 05/01/18 07:35 AST 15 U/L (15-37) 05/01/18 07:35 ALT 18 U/L (13-61) 05/01/18 07:35 Alkaline Phosphatase 59 U/L (45-117) 05/01/18 07:35 Total Protein 6.6 g/dl (6.4-8.2) 05/01/18 07:35 Albumin 3.1 g/dl (3.4-5.0) L 05/01/18 07:35 Urine Color Yellow 04/30/18 10:53 Urine Appearance Slcloudy 04/30/18 10:53 Urine pH 6.0 (5.0-8.0) 04/30/18 10:53 Ur Specific [place] 1.020 (1.010-1.035) 04/30/18 10:53 Urine Protein 1+ (NEGATIVE) H 04/30/18 10:53 Urine Glucose (UA) Negative (NEGATIVE) 04/30/18 10:53 Urine Ketones Negative (NEGATIVE) 04/30/18 10:53 Urine Blood Negative (NEGATIVE) 04/30/18 10:53 Urine Nitrite Negative (NEGATIVE) 04/30/18 10:53 Urine Bilirubin Negative (<2.0 mg/dL) 04/30/18 10:53 Urine Urobilinogen Negative mg/dL (0.2-1.0) 04/30/18 10:53 Ur Leukocyte Esterase Negative (NEGATIVE) 04/30/18 10:53 Urine WBC (Auto) 3 /hpf (3-5) 04/30/18 10:53 Urine RBC (Auto) 2 /hpf (0-3) 04/30/18 10:53 Ur Epithelial Cells Few /HPF (FEW) 04/30/18 10:53 RPR Titer Nonreactive (NONREACTIVE) 05/01/18 07:35 lab noted Assessment: 05/02/18 10:54 withdrawal sx Plan: continue detox
[2018-05-02 13:03] VITALS: BP 118/73; PULSE 74; TEMP 98.1
--- NOTE | 2018-05-02 14:30 | DS ---
[facility] Detox Discharge Summary Admission Date: 04/30/18 Discharge Date: 05/02/18 - History Present History: Alcohol Dependence Additional Comments: 47 years old female admitted on 04/30/18 for alcohol withdrawal sx insists to leave the detox unit patient left the unit before the parts data writer arrival the detox unit according to the nurse that the patient is alert oriented x 3 no acute distress according to the counselor that the patient agrees to consider in patient fernanda in the near future Pertinent Past History: the parts data writer have not assess nor evaluate the patient before the patient left the detox facility - Physical Exam Results Vital Signs: Vital Signs Temperature 98.1 F 05/02/18 13:02 Pulse Rate 74 05/02/18 13:02 Respiratory Rate 18 05/02/18 13:02 Blood Pressure 118/73 05/02/18 13:02 O2 Sat by Pulse Oximetry (%) Pertinent Admission Physical Exam Findings: alcohol withdrawal sx Vital Signs Temperature 98.1 F 05/02/18 13:02 Pulse Rate 74 05/02/18 13:02 Respiratory Rate 18 05/02/18 13:02 Blood Pressure 118/73 05/02/18 13:02 O2 Sat by Pulse Oximetry (%) Laboratory Last Values WBC 3.4 K/mm3 (4.0-10.0) L 05/01/18 07:35 RBC 3.86 M/mm3 (3.60-5.2) 05/01/18 07:35 Hgb 12.1 GM/dL (10.7-15.3) 05/01/18 07:35 Hct 36.8 % (32.4-45.2) 05/01/18 07:35 MCV 95.2 fl (80-96) 05/01/18 07:35 MCH 31.2 pg (25.7-33.7) 05/01/18 07:35 MCHC 32.8 g/dl (32.0-36.0) 05/01/18 07:35 RDW 13.8 % (11.6-15.6) 05/01/18 07:35 Plt Count 295 K/MM3 (134-434) 05/01/18 07:35 MPV 8.4 fl (7.5-11.1) 05/01/18 07:35 Sodium 141 mmol/L (136-145) 05/01/18 07:35 Potassium 3.7 mmol/L (3.5-5.1) 05/01/18 07:35 Chloride 106 mmol/L (98-107) 05/01/18 07:35 Carbon Dioxide 22 mmol/L (21-32) 05/01/18 07:35 Anion Gap 12 MMOL/L (8-16) 05/01/18 07:35 BUN 9 mg/dL (7-18) 05/01/18 07:35 Creatinine 0.7 mg/dL (0.55-1.3) 05/01/18 07:35 Creat Clearance w eGFR > 60 (>60) 05/01/18 07:35 Random Glucose 111 mg/dL (74-106) H 05/01/18 07:35 Calcium 8.4 mg/dL (8.5-10.1) L 05/01/18 07:35 Total Bilirubin 0.4 mg/dL (0.2-1) 05/01/18 07:35 AST 15 U/L (15-37) 05/01/18 07:35 ALT 18 U/L (13-61) 05/01/18 07:35 Alkaline Phosphatase 59 U/L (45-117) 05/01/18 07:35 Total Protein 6.6 g/dl (6.4-8.2) 05/01/18 07:35 Albumin 3.1 g/dl (3.4-5.0) L 05/01/18 07:35 Urine Color Yellow 04/30/18 10:53 Urine Appearance Slcloudy 04/30/18 10:53 Urine pH 6.0 (5.0-8.0) 04/30/18 10:53 Ur Specific [place] 1.020 (1.010-1.035) 04/30/18 10:53 Urine Protein 1+ (NEGATIVE) H 04/30/18 10:53 Urine Glucose (UA) Negative (NEGATIVE) 04/30/18 10:53 Urine Ketones Negative (NEGATIVE) 04/30/18 10:53 Urine Blood Negative (NEGATIVE) 04/30/18 10:53 Urine Nitrite Negative (NEGATIVE) 04/30/18 10:53 Urine Bilirubin Negative (<2.0 mg/dL) 04/30/18 10:53 Urine Urobilinogen Negative mg/dL (0.2-1.0) 04/30/18 10:53 Ur Leukocyte Esterase Negative (NEGATIVE) 04/30/18 10:53 Urine WBC (Auto) 3 /hpf (3-5) 04/30/18 10:53 Urine RBC (Auto) 2 /hpf (0-3) 04/30/18 10:53 Ur Epithelial Cells Few /HPF (FEW) 04/30/18 10:53 RPR Titer Nonreactive (NONREACTIVE) 05/01/18 07:35 lab noted - Treatment Hospital Course: Detox Protocol Followed, Responded well Patient has Accepted a Rehab Referral to: [facility] - Medication Discharge Medications: Ambulatory Orders NK [No Known Home Medication] 08/03/15 - Diagnosis (1) Nicotine dependence Current Visit: Yes Status: Acute Qualifiers: Nicotine product type: cigarettes Substance use status: in withdrawal Qualified Code(s): F17.213 - Nicotine dependence, cigarettes, with withdrawal (2) Alcohol dependence with uncomplicated withdrawal Current Visit: Yes Status: Acute (3) Weight loss Current Visit: Yes Status: Acute - AMA Did Patient Leave Against Medical Advice: Yes
[2018-05-02] MEDS ORDERED: chlordiazePOXIDE 5 MG CAPSULE PO SCH (17:00)
[2018-05-03] MEDS ORDERED: chlordiazePOXIDE HCL 10 MG CAPSULE PO SCH (17:00)
== END 2018-05-02 13:15 | disposition left against medical advice (07) | DRG 770 ==
LOC: YASAS 09:51 → Y6N 10:36
PROC: HZ2ZZZZ Detoxification Services for Substance Abuse Treatment (ICD-10-PCS; principal; 2018-04-30)
DX: F10.230 Alcohol dependence with withdrawal, uncomplicated (principal); F14.20 Cocaine dependence, uncomplicated; F17.213 Nicotine dependence, cigarettes, with withdrawal; L71.8 Other rosacea; Z87.898 Personal history of other specified conditions; Z59.0 Homelessness
CPT/HCPCS: 36415; 80053; 81003; 81015; 85027; 86593; 93005; 93010

== ENCOUNTER 2018-06-17 12:02 | Inpatient (IN) | payer OTHER ==
[2018-06-17 12:48] VITALS: BMI 24.7
--- NOTE | 2018-06-17 15:05 | HP ---
CIWA Score Nausea/Vomitin-No Nausea/No Vomiting Muscle Tremors: 4-Moderate,w/Arms Extend Anxiety: 3 Agitation: 3 Paroxysmal Sweats: 3 Orientation: 0-Oriented Tacttile Disturbances: 0-None Auditory Disturbances: 0-None Visual Disturbances: 0-None Headache: 0-None Present CIWA-Ar Total Score: 13 - Admission Criteria OASAS Guidelines: Admission for Medically Managed Detox: Requires at least one of the followin. CIWA greater than 12 2. Seizures within the past 24 hours 3. Delirium tremens within the past 24 hours 4. Hallucinations within the past 24 hours 5. Acute intervention needed for co occurring medical disorder 6. Acute intervention needed for co occurring psychiatric disorder 7. Severe withdrawal that cannot be handled at a lower level of care (continued vomiting, continued diarrhea, abnormal vital signs) requiring intravenous medication and/or fluids 8. Admission ROS [facility] - HPI Chief Complaint: I am here for the help. I need to stop drinking. Allergies/Adverse Reactions: Allergies Allergy/AdvReac Type Severity Reaction Status Date / Time No Known Allergies Allergy Verified 04/30/18 10:02 History of Present Illness: Pt is a 47yr old female with a history of alcohol and crack/cocaine dependence seeking detox for treatment. Exam Limitations: No Limitations - Ebola screening Have you traveled outside of the country in the last 21 days: No Have you had contact with anyone from an Ebola affected area: No Have you been sick,other than usual withdrawal symptoms: No Do you have a fever: No - Review of Systems Constitutional: Chills, Diaphoresis, Loss of Appetite, Night Sweats, Changes in sleep EENT: reports: Tearing Respiratory: reports: No Symptoms reported Cardiac: reports: No Symptoms Reported GI: reports: Diarrhea, Nausea, Poor Appetite, Poor Fluid Intake, Indigestion : reports: No Symptoms Reported Musculoskeletal: reports: No Symptoms Reported Integumentary: reports: Flushing, Sweating Neuro: reports: Tingling, Tremors Endocrine: reports: Excessive Sweating, Flushing, Intolerance to Cold, Intolerance to Heat Hematology: reports: No Symptoms Reported Psychiatric: reports: Judgement Intact, Mood/Affect Appropiate, Orientated x3, Agitated, Anxious Other Systems: Reviewed and Negative Patient History - Patient Medical History Hx Anemia: No Hx Asthma: No Hx Chronic Obstructive Pulmonary Disease (COPD): No Hx Cancer: No Hx Cardiac Disorders: No Hx Congestive Heart Failure: No Hx Hypertension: Yes (alcohol related) Hx Hypercholesterolemia: No Hx Pacemaker: No HX Cerebrovascular Accident: No Hx Seizures: No Hx Dementia: No Hx Diabetes: No Hx Gastrointestinal Disorders: No Hx Liver Disease: No Hx Genitourinary Disorders: No Hx Sexually Transmitted Disorders: No Hx Renal Disease (ESRD): No Hx Thyroid Disease: No Hx Human Immunodeficiency Virus (HIV): No (LAST TESTED 07/22 NRGATIVE) Hx Hepatitis C: No (last tested 04/18) Hx Depression: No Hx Suicide Attempt: No Hx Bipolar Disorder: No Hx Schizophrenia: No - Patient Surgical History Past Surgical History: No Hx Neurologic Surgery: No Hx Cataract Extraction: No Hx Cardiac Surgery: No Hx Lung Surgery: No Hx Breast Surgery: No Hx Breast Biopsy: No Hx Abdominal Surgery: No Hx Appendectomy: No Hx Cholecystectomy: No Hx Genitourinary Surgery: No Hx Section: No Hx Orthopedic Surgery: No Other Surgical History: L foot sx in 2016 from dog bite. Anesthesia Reaction: No - PPD History Previous Implant?: Yes Documented Results: Negative w/proof Date: 09/26/17 Results: negative PPD to be Administered?: No - Reproductive History Patient is a Female of Child Bearing Age (11 -55 yrs old): Yes Last Menstrual Period: 06/05/18 Patient : No - Smoking Cessation Smoking history: Current every day smoker Have you smoked in the past 12 months: Yes Aproximately how many cigarettes per day: 20 Hx Chewing Tobacco Use: No Initiated information on smoking cessation: Yes 'Breaking Loose' booklet given: 06/17/18 - Substance & Tx. History Hx Alcohol Use: Yes Hx Substance Use: Yes Substance Use Type: Alcohol, Cocaine Hx Substance Use Treatment: Yes (last detox 04/2018 [facility]) - Substances Abused Alcohol Route: Oral Frequency: Daily Amount used: 1.5 pint vodka/10 beers Age of first use: 23 Date of Last Use: 06/17/18 Crack Route: Smoking Frequency: Daily Amount used: $100 Age of first use: 37 Date of Last Use: 06/16/18 Family Disease History - Family Disease History Family Disease History: Heart Disease: Mother (,colon; HTN), CA: Father (decedased, prostate), Mother, Other: Brother (three - healthy (one drinks)), Sister (one - healthy) Admission Physical Exam [facility] - Vital Signs Vital Signs: Vital Signs - 24 hr 06/17/18 12:44 Temperature 98.1 F Pulse Rate 95 H Respiratory 18 Rate Blood Pressure 145/99 - Physical General Appearance: Yes: Appropriately Dressed, Thin, Tremorous, Irritable, Sweating, Anxious HEENTM: Yes: Hearing grossly Normal, Normal Voice, Rhinorrhea Respiratory: Yes: Lungs Clear, Normal Breath Sounds, No Respiratory Distress Neck: Yes: No masses,lesions,Nodules Breast: Yes: Within Normal Limits Cardiology: Yes: Regular Rhythm, Regular Rate, S1, S2 Abdominal: Yes: Normal Bowel Sounds, Non Tender, Flat Genitourinary: Yes: Within Normal Limits Back: Yes: Normal Inspection Musculoskeletal: Yes: full range of Motion, Back pain Extremities: Yes: Normal Capillary Refill, Normal Inspection, Non-Tender, Tremors Neurological: Yes: Fully Oriented, Alert, Normal Response Integumentary: Yes: Diaphoresis, Other (rosacea to facial area) Lymphatic: Yes: Within Normal Limits - Diagnostic (1) Alcohol dependence with uncomplicated withdrawal Current Visit: Yes Status: Chronic (2) Nicotine dependence Current Visit: Yes Status: Chronic Qualifiers: Nicotine product type: cigarettes Substance use status: uncomplicated Qualified Code(s): F17.210 - Nicotine dependence, cigarettes, uncomplicated (3) Weight loss Current Visit: Yes Status: Chronic (4) Cocaine dependence Current Visit: Yes Status: Chronic (5) Rosacea Current Visit: Yes Status: Chronic Cleared for Admission [facility] - Detox or Rehab [facility] Level of Care: Medically Managed Detox Regimen/Protocol: Librium [facility] Breath Alcohol Content Breath Alcohol Content: 0.032 Urine Pregancy Test - Result Urine Test Results: Negative- NO Line Present Urine Drug Screen - Results Drug Screen Negative: No Urine Drug Screen Results: ITA-Cocaine, BZO-Benzodiazepines
[2018-06-17] MEDS ORDERED: chlordiazePOXIDE HCL 25 MG CAPSULE PO PRN (15:13)
[2018-06-17] MEDS ORDERED: IBUPROFEN 400 MG TABLET (FP) PO PRN (15:13)
[2018-06-17] MEDS ORDERED: MAGNESIUM CITRATE 300 ML BOTTLE PO PRN (15:13)
[2018-06-17] MEDS ORDERED: guaiFENesin/D-METHORPHAN HB 10 ML UNIT-DOSE CUPS PO PRN (15:13)
[2018-06-17] MEDS ORDERED: MAG HYDROX/AL HYDROX/SIMETH 30 ML UNIT-DOSE CUP PO PRN (15:13)
[2018-06-17] MEDS ORDERED: NICOTINE POLACRILEX 4 MG GUM BC PRN (15:13)
[2018-06-17] MEDS ORDERED: LOPERAMIDE HCL 2 MG CAPSULE PO PRN (15:13)
[2018-06-17] MEDS ORDERED: P-EPHED 60MG/TRIPROLIDI 2.5MG TABLET PO PRN (15:13)
[2018-06-17] MEDS ORDERED: ACETAMINOPHEN 325 MG TABLET (FP) PO PRN (15:13)
[2018-06-17] MEDS ORDERED: MENTHOL/PHENOL 1 EACH UD MM PRN (15:13)
[2018-06-17] MEDS ORDERED: MAGNESIUM HYDROX 2400MG/30ML ORAL SUSPENSION 30 ML CUP PO PRN (15:13)
[2018-06-17] MEDS ORDERED: chlordiazePOXIDE HCL 25 MG CAPSULE PO ONE (16:30)
[2018-06-17] MEDS ORDERED: COLLOIDAL OATMEAL 1 BAR EACH TP PRN (17:50)
[2018-06-17] MEDS: THIAMINE HCL 100 MG TABLET (FP) PO SCH (22:10)
[2018-06-17] MEDS: chlordiazePOXIDE HCL 25 MG CAPSULE PO SCH (22:10)
[2018-06-17] MEDS: MELATONIN 5 MG TABLETS PO PRN (22:11)
[2018-06-18] MEDS: chlordiazePOXIDE HCL 25 MG CAPSULE PO SCH ×4 (05:35→22:08)
[2018-06-18] MEDS: NICOTINE 21 MG/24 HOURS TOPICAL PATCH TD SCH (10:15)
[2018-06-18] MEDS: PRENATAL VITAMINS W/ FOLIC ACID TABLET (FP) PO SCH (10:15)
[2018-06-18 10:50] LABS: HEMATOCRIT 37.6 % (32.4-45.2); HEMOGLOBIN 12.2 GM/dL (10.7-15.3); MCH 30.3 pg (25.7-33.7); MCHC 32.5 g/dl (32.0-36.0); MEAN CELL VOLUME 93.4 fl (80-96); MEAN PLT VOLUME 8.5 fl (7.5-11.1); PLATELET COUNT 313 K/MM3 (134-434); RBC 4.02 M/mm3 (3.60-5.2); RDW 13.6 % (11.6-15.6); WHITE BLOOD COUNT 3.2 K/mm3 (4.0-10.0)
[2018-06-18 10:53] LABS: ALBUMIN 3.6 g/dl (3.4-5.0); ALK PHOS 82 U/L (45-117); ANION GAP 7 MMOL/L (8-16); BILIRUBIN,TOTAL 0.5 mg/dL (0.2-1); BLOOD UREA NITROGEN 5 mg/dL (7-18); CALCIUM 8.8 mg/dL (8.5-10.1); CHLORIDE 106 mmol/L (98-107); CO2 25 mmol/L (21-32); CREATININE 0.7 mg/dL (0.55-1.3); GLUCOSE,RANDOM 114 mg/dL (74-106); POTASSIUM 3.7 mmol/L (3.5-5.1); SGOT/AST 23 U/L (15-37); SGPT/ALT 28 U/L (13-61); SODIUM 137 mmol/L (136-145); TOT PROT 7.7 g/dl (6.4-8.2)
--- NOTE | 2018-06-18 11:17 | PN ---
[facility] CIWA - CIWA Score Nausea/Vomitin Muscle Tremors: 2 Anxiety: 1-Mildly Anxious Agitation: 1-Slight > Activity Paroxysmal Sweats: No Perspiration Orientation: 0-Oriented Tacttile Disturbances: 0-None Auditory Disturbances: 0-None Visual Disturbances: 0-None Headache: 0-None Present CIWA-Ar Total Score: 6 [facility] Progress Note (SOAP) Subjective: pt states that she uses a steroid cream-mometasone for rosacea of face- was given my roll reclaimer. Pt states has not used this for the last year. o: Vital Signs - 24 hr 06/17/18 06/17/18 06/17/18 12:44 18:53 22:00 Temperature 98.1 F 98.2 F 97.9 F Pulse Rate 95 H 98 H 73 Respiratory 18 18 181 H Rate Blood Pressure 145/99 152/108 H 152/108 H 06/18/18 06/18/18 06/18/18 03:07 07:14 09:58 Temperature 97.7 F Pulse Rate 71 86 Respiratory 16 18 18 Rate Blood Pressure 144/86 137/82 a/o AUD- continue detox protocol rosacea- steroid cream
[2018-06-18] MEDS: MELATONIN 5 MG TABLETS PO PRN (22:08)
[2018-06-18] MEDS: THIAMINE HCL 100 MG TABLET (FP) PO SCH (22:08)
[2018-06-18] MEDS: FLUOCINONIDE 0.05% TOP OINT (60 GM TUBE) TP SCH (22:08)
[2018-06-18] MEDS: hydrOXYzine PAMOATE 50 MG CAPSULE (FP) PO PRN (22:09)
[2018-06-19] MEDS: chlordiazePOXIDE HCL 25 MG CAPSULE PO SCH ×4 (05:50→17:02)
[2018-06-19] MEDS: PRENATAL VITAMINS W/ FOLIC ACID TABLET (FP) PO SCH (10:49)
[2018-06-19] MEDS: NICOTINE 21 MG/24 HOURS TOPICAL PATCH TD SCH (10:59)
[2018-06-19] MEDS: FLUOCINONIDE 0.05% TOP OINT (60 GM TUBE) TP SCH ×2 (10:59→22:26)
--- NOTE | 2018-06-19 14:54 | PN ---
[facility] CIWA - CIWA Score Nausea/Vomitin-Mild Nausea/No Vomiting Muscle Tremors: 3 Anxiety: 2 Agitation: 1-Slight > Activity Paroxysmal Sweats: 1-Minimal Palms Moist Orientation: 0-Oriented Tacttile Disturbances: 0-None Auditory Disturbances: 0-None Visual Disturbances: 0-None Headache: 1-Very Mild CIWA-Ar Total Score: 9 S Progress Note (SOAP) Subjective: no gi distress tremor sweat Objective: 06/19/18 14:55 Vital Signs Temperature 98.1 F 06/19/18 11:00 Pulse Rate 89 06/19/18 11:00 Respiratory Rate 18 06/19/18 11:00 Blood Pressure 129/78 06/19/18 11:00 O2 Sat by Pulse Oximetry (%) Laboratory Last Values WBC 3.2 K/mm3 (4.0-10.0) L 06/18/18 05:30 RBC 4.02 M/mm3 (3.60-5.2) 06/18/18 05:30 Hgb 12.2 GM/dL (10.7-15.3) 06/18/18 05:30 Hct 37.6 % (32.4-45.2) 06/18/18 05:30 MCV 93.4 fl (80-96) 06/18/18 05:30 MCH 30.3 pg (25.7-33.7) 06/18/18 05:30 MCHC 32.5 g/dl (32.0-36.0) 06/18/18 05:30 RDW 13.6 % (11.6-15.6) 06/18/18 05:30 Plt Count 313 K/MM3 (134-434) 06/18/18 05:30 MPV 8.5 fl (7.5-11.1) 06/18/18 05:30 Sodium 137 mmol/L (136-145) 06/18/18 05:30 Potassium 3.7 mmol/L (3.5-5.1) 06/18/18 05:30 Chloride 106 mmol/L (98-107) 06/18/18 05:30 Carbon Dioxide 25 mmol/L (21-32) 06/18/18 05:30 Anion Gap 7 MMOL/L (8-16) L 06/18/18 05:30 BUN 5 mg/dL (7-18) L 06/18/18 05:30 Creatinine 0.7 mg/dL (0.55-1.3) 06/18/18 05:30 Creat Clearance w eGFR > 60 (>60) 06/18/18 05:30 Random Glucose 114 mg/dL (74-106) H 06/18/18 05:30 Calcium 8.8 mg/dL (8.5-10.1) 06/18/18 05:30 Total Bilirubin 0.5 mg/dL (0.2-1) 06/18/18 05:30 AST 23 U/L (15-37) 06/18/18 05:30 ALT 28 U/L (13-61) 06/18/18 05:30 Alkaline Phosphatase 82 U/L (45-117) 06/18/18 05:30 Total Protein 7.7 g/dl (6.4-8.2) 06/18/18 05:30 Albumin 3.6 g/dl (3.4-5.0) 06/18/18 05:30 RPR Titer Nonreactive (NONREACTIVE) 06/18/18 05:30 lab noted Assessment: 06/19/18 14:55 Vital Signs withdrawal sx 06/19/18 14:55 Plan: continue detox
[2018-06-19] MEDS: hydrOXYzine PAMOATE 50 MG CAPSULE (FP) PO PRN (17:02)
[2018-06-19] MEDS: chlordiazePOXIDE 5 MG CAPSULE PO SCH (22:26)
[2018-06-19] MEDS: THIAMINE HCL 100 MG TABLET (FP) PO SCH (22:26)
[2018-06-20] MEDS: chlordiazePOXIDE 5 MG CAPSULE PO SCH ×3 (05:56→17:19)
[2018-06-20] MEDS: NICOTINE 21 MG/24 HOURS TOPICAL PATCH TD SCH (10:10)
[2018-06-20] MEDS: FLUOCINONIDE 0.05% TOP OINT (60 GM TUBE) TP SCH ×2 (10:10→23:08)
[2018-06-20] MEDS: PRENATAL VITAMINS W/ FOLIC ACID TABLET (FP) PO SCH (10:10)
--- NOTE | 2018-06-20 12:15 | PN ---
[facility] Progress Note (SOAP) Subjective: feeling better anxiety Objective: 06/20/18 13:20 Vital Signs Temperature 97.0 F L 06/20/18 09:08 Pulse Rate 95 H 06/20/18 09:08 Respiratory Rate 18 06/20/18 09:08 Blood Pressure 113/73 06/20/18 09:08 O2 Sat by Pulse Oximetry (%) aaox3 ambulating no acute distress Assessment: 06/20/18 13:20 mild withdrawal sx Plan: continue detox increase fluids d/c in am
[2018-06-20] MEDS: hydrOXYzine PAMOATE 50 MG CAPSULE (FP) PO PRN (17:21)
[2018-06-20] MEDS: THIAMINE HCL 100 MG TABLET (FP) PO SCH (23:08)
[2018-06-20] MEDS: chlordiazePOXIDE HCL 10 MG CAPSULE PO SCH (23:30)
[2018-06-21] MEDS: chlordiazePOXIDE HCL 10 MG CAPSULE PO SCH ×2 (06:16→10:14)
--- NOTE | 2018-06-21 09:04 | DS ---
[facility] Detox Discharge Summary Admission Date: 06/17/18 Discharge Date: 06/21/18 - History Present History: Alcohol Dependence, Cocaine Dependence - Physical Exam Results Vital Signs: Vital Signs Temperature 97.9 F 06/21/18 06:16 Pulse Rate 77 06/21/18 06:16 Respiratory Rate 18 06/21/18 06:16 Blood Pressure 122/77 06/21/18 06:16 O2 Sat by Pulse Oximetry (%) - Treatment Hospital Course: Detox Protocol Followed, Detoxed Safely, Responded well, Discharged Condition Good, Rehab Referral Accepted - Medication Discharge Medications: Ambulatory Orders NK [No Known Home Medication] 08/03/15 - Diagnosis (1) Alcohol dependence with uncomplicated withdrawal Current Visit: Yes Status: Chronic (2) Nicotine dependence Current Visit: Yes Status: Chronic Qualifiers: Nicotine product type: cigarettes Substance use status: uncomplicated Qualified Code(s): F17.210 - Nicotine dependence, cigarettes, uncomplicated (3) Weight loss Current Visit: Yes Status: Chronic (4) Cocaine dependence Current Visit: Yes Status: Chronic (5) Rosacea Current Visit: Yes Status: Chronic - AMA Did Patient Leave Against Medical Advice: No (referred to [facility])
[2018-06-21 09:33] VITALS: BP 116/51; PULSE 69; TEMP 98.2
[2018-06-21] MEDS: PRENATAL VITAMINS W/ FOLIC ACID TABLET (FP) PO SCH (10:13)
[2018-06-21] MEDS: NICOTINE 21 MG/24 HOURS TOPICAL PATCH TD SCH (10:14)
[2018-06-21] MEDS: FLUOCINONIDE 0.05% TOP OINT (60 GM TUBE) TP SCH (10:15)
== END 2018-06-21 11:39 | disposition other institution (70) | DRG 774 ==
LOC: YASAS 12:02 → Y6N 15:57
PROC: HZ2ZZZZ Detoxification Services for Substance Abuse Treatment (ICD-10-PCS; principal; 2018-06-17)
DX: F10.230 Alcohol dependence with withdrawal, uncomplicated (principal); F14.20 Cocaine dependence, uncomplicated; F17.210 Nicotine dependence, cigarettes, uncomplicated; I10 Essential (primary) hypertension; L71.9 Rosacea, unspecified; Z59.0 Homelessness
CPT/HCPCS: 36415; 80053; 85027; 86593

== ENCOUNTER 2018-06-21 11:49 | Inpatient (IN) | payer OTHER ==
--- NOTE | 2018-06-21 11:39 | HP ---
[facility] Rehab Assess/Revision - Admission History Ad[facility] to Rehab [facility] - Findings Detox History & Physical reviewed: Yes Concur with findings: Yes Inpatient Rehab Admission - Initial Determination Are CD services needed?: Yes Free of communicable disease: Yes - Rehab Admission Criteria Previous failed treatment: Yes Poor recovery environment: Yes Comorbidities: Yes Lacks judgement: Yes
[~2018-06-21 11:49] MED LIST: ACETAMINOPHEN 325 MG TABLET (FP) PO PRN; IBUPROFEN 400 MG TABLET (FP) PO PRN; LOPERAMIDE HCL 2 MG CAPSULE PO PRN; MAG HYDROX/AL HYDROX/SIMETH 30 ML UNIT-DOSE CUP PO PRN; MAGNESIUM CITRATE 300 ML BOTTLE PO PRN; MAGNESIUM HYDROX 2400MG/30ML ORAL SUSPENSION 30 ML CUP PO PRN; MENTHOL/PHENOL 1 EACH UD MM PRN; P-EPHED 60MG/TRIPROLIDI 2.5MG TABLET PO PRN; guaiFENesin/D-METHORPHAN HB 10 ML UNIT-DOSE CUPS PO PRN
--- NOTE | 2018-06-21 13:40 | HP ---
Psychiatrist Admission - Data Date of interview: 06/21/18 Admission source: [facility] Identifying data: Patient is a 47 year old female, without children, unemployed, domiciled (resides with family in [place]), and is supported by food stamps. This is patient's first admission to rehab at [facility]. Patient admitted to for alcohol and cocaine dependence. Medical History: L foot sx in 2016 from dog bite, h/o rosacea Psychiatric History: Patient denies h/o psychiatric hospitalization, outpatient care, and suicide attempt. At present, she reports stable mood, but is mildly anxious and reports difficulty sleeping. Physical/Sexual Abuse/Trauma History: denies. Vital Signs: Vital Signs - 24 hr 06/21/18 13:07 Temperature 97.4 F L Pulse Rate 89 Respiratory 18 Rate Blood Pressure 138/99 Allergies/Adverse Reactions: Allergies Allergy/AdvReac Type Severity Reaction Status Date / Time No Known Allergies Allergy Verified 06/21/18 13:03 Date of last physical exam: 06/17/18 Concur with the findings of this exam: Yes - Substance Abuse/Tx History Hx Alcohol Use: Yes (1.5- 2 pints of vodka daily and 8-10 24ounce cans daily) Hx Substance Use: Yes (Cocaine- 2 grams daily ($60-$100 daily)) Substance Use Type: Cocaine Hx Substance Use Treatment: Yes ([facility] five years ago) Mental Status Exam - Mental Status Exam Alert and Oriented to: Time, Place, Person Cognitive Function: Good Patient Appearance: Well Groomed Mood: Hopeful Affect: Appropriate Patient Behavior: Appropriate, Cooperative Speech Pattern: Clear, Appropriate Voice Loudness: Normal Thought Process: Intact, Goal Oriented Thought Disorder: Not Present Hallucinations: Denies Suicidal Ideation: Denies Homicidal Ideation: Denies Insight/Judgement: Poor Sleep: Poorly Appetite: Fair Muscle strength/Tone: Normal Gait/Station: Normal Psychiatric Findings - Problem List ([place] 1, 2,3) (1) Alcohol dependence Current Visit: Yes Status: Acute (2) Cocaine dependence Current Visit: Yes Status: Chronic (3) Nicotine dependence Current Visit: Yes Status: Chronic Qualifiers: Nicotine product type: cigarettes Substance use status: uncomplicated Qualified Code(s): F17.210 - Nicotine dependence, cigarettes, uncomplicated - Initial Treatment Plan Initial Treatment Plan: Psychoeducation provided. Rehab in progress. Will increase Melatonin 5mg to 10mg qhs. Benefits and side effects discussed. Verbal consent given.
[2018-06-21] MEDS: FLUOCINONIDE 0.05% CREAM (15 GM TUBE) TP SCH (16:09)
[2018-06-21] MEDS: hydrOXYzine PAMOATE 50 MG CAPSULE (FP) PO PRN (17:03)
[2018-06-21] MEDS ORDERED: COLLOIDAL OATMEAL 1 BAR EACH TP PRN (21:00)
[2018-06-21] MEDS: MELATONIN 5 MG TABLETS PO PRN (21:21)
[2018-06-21] MEDS: THIAMINE HCL 100 MG TABLET (FP) PO SCH (21:22)
[2018-06-21] MEDS: CLOTRIMAZOLE 1% CREAM 15 GM TUBE TP SCH (21:57)
[2018-06-21] MEDS ORDERED: MELATONIN 5 MG TABLETS PO PRN (22:00)
[2018-06-22] MEDS: PRENATAL VITAMINS W/ FOLIC ACID TABLET (FP) PO SCH (10:02)
[2018-06-22] MEDS: NICOTINE POLACRILEX 4 MG GUM BUC PRN ×3 (10:03→17:47)
[2018-06-22] MEDS: FLUOCINONIDE 0.05% CREAM (15 GM TUBE) TP SCH (10:03)
[2018-06-22] MEDS: CLOTRIMAZOLE 1% CREAM 15 GM TUBE TP SCH ×2 (10:03→21:47)
[2018-06-22] MEDS: NICOTINE 21 MG/24 HOURS TOPICAL PATCH TD SCH (10:03)
[2018-06-22] MEDS: hydrOXYzine PAMOATE 50 MG CAPSULE (FP) PO PRN (17:46)
[2018-06-22] MEDS ORDERED: PT OWN MED DRAWER 7, Y5N ONE (19:24)
[2018-06-22] MEDS: THIAMINE HCL 100 MG TABLET (FP) PO SCH (21:47)
[2018-06-22] MEDS: MELATONIN 5 MG TABLETS PO PRN (21:48)
[2018-06-23 07:32] VITALS: BP 111/73; PULSE 83; TEMP 98
[2018-06-23] MEDS ORDERED: PT OWN MED DRAWER 7, Y5N ONE (08:47)
[2018-06-23] MEDS: CLOTRIMAZOLE 1% CREAM 15 GM TUBE TP SCH (09:22)
[2018-06-23] MEDS: PRENATAL VITAMINS W/ FOLIC ACID TABLET (FP) PO SCH (09:22)
[2018-06-23] MEDS: NICOTINE 21 MG/24 HOURS TOPICAL PATCH TD SCH (09:23)
[2018-06-23] MEDS ORDERED: FLUOCINONIDE 0.05% TOP OINT (15 GM TUBE) TP SCH (10:00)
== END 2018-06-23 11:15 | disposition left against medical advice (07) | DRG 770 ==
LOC: YASAS 11:49 → Y3W 11:50
PROVIDERS: ADMIT Psychiatry & Neurology Psychiatry; ATTEND Psychiatry & Neurology Psychiatry
PROC: HZ42ZZZ Group Counseling for Substance Abuse Treatment, Cognitive-Behavioral (ICD-10-PCS; principal; 2018-06-21)
DX: F10.230 Alcohol dependence with withdrawal, uncomplicated (principal); F14.20 Cocaine dependence, uncomplicated; F17.210 Nicotine dependence, cigarettes, uncomplicated; Z59.0 Homelessness

== ENCOUNTER 2018-07-28 11:29 | Inpatient (IN) | payer OTHER ==
[2018-07-28 12:06] VITALS: BMI 26.6
--- NOTE | 2018-07-28 13:49 | HP ---
CIWA Score Nausea/Vomitin-Mild Nausea/No Vomiting Muscle Tremors: 4-Moderate,w/Arms Extend Anxiety: 4-Mod. Anxious/Guarded Agitation: 4-Moderately Restless Paroxysmal Sweats: 3 Orientation: 0-Oriented Tacttile Disturbances: 0-None Auditory Disturbances: 0-None Visual Disturbances: 0-None Headache: 1-Very Mild CIWA-Ar Total Score: 17 - Admission Criteria OASAS Guidelines: Admission for Medically Managed Detox: Requires at least one of the followin. CIWA greater than 12 2. Seizures within the past 24 hours 3. Delirium tremens within the past 24 hours 4. Hallucinations within the past 24 hours 5. Acute intervention needed for co occurring medical disorder 6. Acute intervention needed for co occurring psychiatric disorder 7. Severe withdrawal that cannot be handled at a lower level of care (continued vomiting, continued diarrhea, abnormal vital signs) requiring intravenous medication and/or fluids 8. Admission ROS S - HPI Chief Complaint: I need to stop drinking and get to stay sober. Allergies/Adverse Reactions: Allergies Allergy/AdvReac Type Severity Reaction Status Date / Time No Known Allergies Allergy Verified 07/28/18 13:14 History of Present Illness: pt is a 47yr old female with a long history of alcohol dependence seeking detox for treatment. Exam Limitations: No Limitations - Ebola screening Have you traveled outside of the country in the last 21 days: No Have you had contact with anyone from an Ebola affected area: No Have you been sick,other than usual withdrawal symptoms: No Do you have a fever: No - Review of Systems Constitutional: Chills, Diaphoresis, Loss of Appetite, Night Sweats EENT: reports: Tearing, Nose Congestion Respiratory: reports: No Symptoms reported Cardiac: reports: No Symptoms Reported GI: reports: Constipated, Poor Appetite, Poor Fluid Intake, Indigestion : reports: No Symptoms Reported Musculoskeletal: reports: Back Pain Integumentary: reports: Flushing, Sweating Neuro: reports: Headache, Tingling, Tremors Endocrine: reports: Excessive Sweating, Flushing, Intolerance to Cold, Intolerance to Heat Hematology: reports: No Symptoms Reported Psychiatric: reports: Judgement Intact, Mood/Affect Appropiate, Orientated x3, Agitated, Anxious Other Systems: Reviewed and Negative Patient History - Patient Medical History Hx Anemia: No Hx Asthma: No Hx Chronic Obstructive Pulmonary Disease (COPD): No Hx Cancer: No Hx Cardiac Disorders: No Hx Congestive Heart Failure: No Hx Hypertension: No Hx Hypercholesterolemia: No Hx Pacemaker: No HX Cerebrovascular Accident: No Hx Seizures: No Hx Dementia: No Hx Diabetes: No Hx Gastrointestinal Disorders: No Hx Liver Disease: No Hx Genitourinary Disorders: No Hx Sexually Transmitted Disorders: No Hx Renal Disease (ESRD): No Hx Thyroid Disease: No Hx Human Immunodeficiency Virus (HIV): No (LAST TESTED 07/22 NRGATIVE) Hx Hepatitis C: No (last tested 04/18) Hx Depression: No Hx Suicide Attempt: No Hx Bipolar Disorder: No Hx Schizophrenia: No - Patient Surgical History Past Surgical History: No Hx Neurologic Surgery: No Hx Cataract Extraction: No Hx Cardiac Surgery: No Hx Lung Surgery: No Hx Breast Surgery: No Hx Breast Biopsy: No Hx Abdominal Surgery: No Hx Appendectomy: No Hx Cholecystectomy: No Hx Genitourinary Surgery: No Hx Section: No Hx Orthopedic Surgery: No Other Surgical History: L foot sx in 2016 from dog bite. Anesthesia Reaction: No - PPD History Previous Implant?: Yes Documented Results: Negative w/proof Implanted On Prior R Admission?: No Date: 09/26/17 Results: 0 mm PPD to be Administered?: Yes - Reproductive History Patient is a Female of Child Bearing Age (11 -55 yrs old): Yes Last Menstrual Period: 07/06/18 Patient : No - Smoking Cessation Smoking history: Current every day smoker Have you smoked in the past 12 months: Yes Aproximately how many cigarettes per day: 20 Hx Chewing Tobacco Use: No Initiated information on smoking cessation: Yes 'Breaking Loose' booklet given: 07/28/18 - Substance & Tx. History Hx Alcohol Use: Yes Hx Substance Use: No Substance Use Type: Alcohol, Cocaine Hx Substance Use Treatment: Yes (last detox [facility] 2018) - Substances Abused Alcohol Route: Oral Frequency: Daily Amount used: 1 pint vodka/ 10 24 oz beers Age of first use: 22 Date of Last Use: 07/28/18 Crack Route: Smoking Frequency: Daily Amount used: $100 Age of first use: 37 Date of Last Use: 07/28/18 Family Disease History - Family Disease History Family Disease History: Heart Disease: Mother (,colon; HTN), CA: Father (decedased, prostate), Mother, Other: Brother (three - healthy (one drinks)), Sister (one - healthy) Admission Physical Exam [facility] - Vital Signs Vital Signs: Vital Signs - 24 hr 07/28/18 12:03 Temperature 98.4 F Pulse Rate 94 H Respiratory 20 Rate Blood Pressure 107/72 - Physical General Appearance: Yes: Appropriately Dressed, Moderate Distress, Thin, Tremorous, Irritable, Sweating, Anxious HEENTM: Yes: Hearing grossly Normal, Normal Voice, Nasal Congestion, Rhinorrhea Respiratory: Yes: Lungs Clear, Normal Breath Sounds, No Respiratory Distress Neck: Yes: No masses,lesions,Nodules Breast: Yes: Within Normal Limits Cardiology: Yes: Regular Rhythm, Regular Rate, S1, S2 Abdominal: Yes: Normal Bowel Sounds, Non Tender, Soft Genitourinary: Yes: Within Normal Limits Back: Yes: Normal Inspection Musculoskeletal: Yes: full range of Motion, Back pain Extremities: Yes: Normal Capillary Refill, Normal Inspection, Non-Tender, Tremors Neurological: Yes: Fully Oriented, Alert, Normal Response Integumentary: Yes: Normal Color, Diaphoresis Lymphatic: Yes: Within Normal Limits - Diagnostic (1) Alcohol dependence with uncomplicated withdrawal Current Visit: Yes Status: Chronic (2) Cocaine dependence Current Visit: Yes Status: Chronic (3) Nicotine dependence Current Visit: Yes Status: Chronic Qualifiers: Nicotine product type: cigarettes Substance use status: uncomplicated Qualified Code(s): F17.210 - Nicotine dependence, cigarettes, uncomplicated (4) Rosacea Current Visit: Yes Status: Chronic (5) Weight loss Current Visit: No Status: Chronic Cleared for Admission [facility] - Detox or Rehab [facility] Level of Care: Medically Managed Detox Regimen/Protocol: Librium [facility] Breath Alcohol Content Breath Alcohol Content: 0.225 Urine Pregancy Test - Result Urine Test Results: Negative- NO Line Present Urine Drug Screen - Results Drug Screen Negative: No Urine Drug Screen Results: ITA-Cocaine, BZO-Benzodiazepines
[2018-07-28] MEDS ORDERED: ACETAMINOPHEN 325 MG TABLET (FP) PO PRN (13:51)
[2018-07-28] MEDS ORDERED: MENTHOL/PHENOL 1 EACH UD MM PRN (13:51)
[2018-07-28] MEDS ORDERED: MAGNESIUM HYDROX 2400MG/30ML ORAL SUSPENSION 30 ML CUP PO PRN (13:51)
[2018-07-28] MEDS ORDERED: chlordiazePOXIDE HCL 25 MG CAPSULE PO PRN (13:51)
[2018-07-28] MEDS ORDERED: guaiFENesin/D-METHORPHAN HB 10 ML UNIT-DOSE CUPS PO PRN (13:51)
[2018-07-28] MEDS ORDERED: hydrOXYzine PAMOATE 50 MG CAPSULE (FP) PO PRN (13:51)
[2018-07-28] MEDS ORDERED: IBUPROFEN 400 MG TABLET (FP) PO PRN (13:51)
[2018-07-28] MEDS ORDERED: MAGNESIUM CITRATE 300 ML BOTTLE PO PRN (13:51)
[2018-07-28] MEDS ORDERED: P-EPHED 60MG/TRIPROLIDI 2.5MG TABLET PO PRN (13:51)
[2018-07-28] MEDS ORDERED: MAG HYDROX/AL HYDROX/SIMETH 30 ML UNIT-DOSE CUP PO PRN (13:51)
[2018-07-28] MEDS ORDERED: NICOTINE POLACRILEX 4 MG GUM BUC PRN (13:51)
[2018-07-28] MEDS ORDERED: LOPERAMIDE HCL 2 MG CAPSULE PO PRN (13:51)
[2018-07-28] MEDS ORDERED: COLLOIDAL OATMEAL 1 BAR EACH TP PRN (13:54)
[2018-07-28] MEDS ORDERED: chlordiazePOXIDE HCL 25 MG CAPSULE PO ONE (15:45)
[2018-07-28] MEDS: chlordiazePOXIDE HCL 25 MG CAPSULE PO SCH ×2 (16:49→22:16)
[2018-07-28] MEDS: MELATONIN 5 MG TABLETS PO PRN (22:16)
[2018-07-28] MEDS: THIAMINE HCL 100 MG TABLET (FP) PO SCH (22:16)
[2018-07-29] MEDS: chlordiazePOXIDE HCL 25 MG CAPSULE PO SCH ×4 (06:14→22:22)
[2018-07-29] MEDS ORDERED: FLUOCINONIDE 0.05% CREAM (15 GM TUBE) TP SCH (10:00)
[2018-07-29] MEDS ORDERED: NICOTINE 21 MG/24 HOURS TOPICAL PATCH TD SCH (10:00)
[2018-07-29] MEDS ORDERED: PRENATAL VITAMINS W/ FOLIC ACID TABLET (FP) PO SCH (10:00)
[2018-07-29 10:29] LABS: ALBUMIN 3.8 g/dl (3.4-5.0); ALK PHOS 81 U/L (45-117); ANION GAP 9 MMOL/L (8-16); BILIRUBIN,TOTAL 0.3 mg/dL (0.2-1); BLOOD UREA NITROGEN 8 mg/dL (7-18); CALCIUM 8.7 mg/dL (8.5-10.1); CHLORIDE 104 mmol/L (98-107); CO2 27 mmol/L (21-32); CREATININE 0.8 mg/dL (0.55-1.3); GLUCOSE,RANDOM 63 mg/dL (74-106); POTASSIUM 3.4 mmol/L (3.5-5.1); SGOT/AST 23 U/L (15-37); SGPT/ALT 26 U/L (13-61); SODIUM 140 mmol/L (136-145); TOT PROT 7.9 g/dl (6.4-8.2)
[2018-07-29 10:48] LABS: HEMOGLOBIN 12.1 GM/dL (10.7-15.3); MCH 31.4 pg (25.7-33.7); MCHC 33.4 g/dl (32.0-36.0); MEAN CELL VOLUME 93.9 fl (80-96); PLATELET COUNT 386 K/MM3 (134-434); RBC 3.84 M/mm3 (3.60-5.2); WHITE BLOOD COUNT 5.9 K/mm3 (4.0-10.0)
--- NOTE | 2018-07-29 17:19 | PN ---
[facility] CIWA - CIWA Score Nausea/Vomitin-No Nausea/No Vomiting Muscle Tremors: 3 Anxiety: 3 Agitation: 1-Slight > Activity Paroxysmal Sweats: No Perspiration Orientation: 0-Oriented Tacttile Disturbances: 2-Mild Itch/Numbness/Burn Auditory Disturbances: 2-Mild Harshness/Frighten Visual Disturbances: 0-None Headache: 0-None Present CIWA-Ar Total Score: 11 BHS Progress Note (SOAP) Subjective: Tremors, Anxious, Interrupted Sleep. Objective: PATIENT A & O X 3, OBSERVED AMBULATING ON UNIT. IN NO ACUTE DISTRESS. 07/29/18 17:20 Vital Signs Temperature 96.1 F L 07/29/18 14:51 Pulse Rate 94 H 07/29/18 16:00 Respiratory Rate 18 07/29/18 16:00 Blood Pressure 117/79 07/29/18 14:51 O2 Sat by Pulse Oximetry (%) Laboratory Tests 07/29/18 07/29/18 06:00 06:00 WBC 5.9 RBC 3.84 Hgb 12.1 Hct 36.0 MCV 93.9 MCH 31.4 MCHC 33.4 RDW 15.0 D Plt Count 386 D MPV 8.0 Sodium 140 Potassium 3.4 L Chloride 104 Carbon Dioxide 27 Anion Gap 9 BUN 8 Creatinine 0.8 Creat Clearance w eGFR > 60 Random Glucose 63 L Calcium 8.7 Total Bilirubin 0.3 AST 23 ALT 26 Alkaline Phosphatase 81 Total Protein 7.9 Albumin 3.8 LABS NOTED. Assessment: 07/29/18 17:22 WITHDRAWAL SYMPTOMS. HYPOKALEMIA. Plan: CONTINUE DETOX. K-DUR, 20 MEQ PO BID.
[2018-07-29] MEDS ORDERED: POTASSIUM CHLORIDE TABS 20 MEQ TABLET.ER (FP) PO SCH (18:00)
[2018-07-29] MEDS: THIAMINE HCL 100 MG TABLET (FP) PO SCH (22:22)
[2018-07-29] MEDS: MELATONIN 5 MG TABLETS PO PRN (22:23)
[2018-07-30] MEDS: chlordiazePOXIDE HCL 25 MG CAPSULE PO SCH (07:18)
[2018-07-30 09:18] VITALS: BP 117/82; PULSE 90; TEMP 97.1
--- NOTE | 2018-07-30 16:28 | PN ---
S CIWA - CIWA Score Nausea/Vomitin-No Nausea/No Vomiting Muscle Tremors: 3 Anxiety: 3 Agitation: 2 Paroxysmal Sweats: No Perspiration Orientation: 0-Oriented Tacttile Disturbances: 1-Very Mild Itch/Numbness Auditory Disturbances: 0-None Visual Disturbances: 2-Mild Sensitivity Headache: 0-None Present CIWA-Ar Total Score: 11 BHS Progress Note (SOAP) Subjective: Tremors, Anxious, Interrupted Sleep. Objective: PATIENT A & O X 3, OBSERVED AMBULATING ON UNIT. IN NO ACUTE DISTRESS. 07/30/18 16:28 Vital Signs Temperature 97.1 F L 07/30/18 09:18 Pulse Rate 90 07/30/18 09:18 Respiratory Rate 18 07/30/18 09:18 Blood Pressure 117/82 07/30/18 09:18 O2 Sat by Pulse Oximetry (%) Laboratory Tests 07/29/18 07/29/18 07/29/18 06:00 06:00 06:00 WBC 5.9 RBC 3.84 Hgb 12.1 Hct 36.0 MCV 93.9 MCH 31.4 MCHC 33.4 RDW 15.0 D Plt Count 386 D MPV 8.0 Sodium 140 Potassium 3.4 L Chloride 104 Carbon Dioxide 27 Anion Gap 9 BUN 8 Creatinine 0.8 Creat Clearance w eGFR > 60 Random Glucose 63 L Calcium 8.7 Total Bilirubin 0.3 AST 23 ALT 26 Alkaline Phosphatase 81 Total Protein 7.9 Albumin 3.8 RPR Titer Nonreactive LABS NOTED. Assessment: 07/30/18 16:28 WITHDRAWAL SYMPTOMS. HYPOKALEMIA. 07/30/18 16:29 Plan: CONTINUE DETOX. INCREASE DAILY PO FLUID INTAKE. CONTINUE K-DUR.
--- NOTE | 2018-07-30 16:33 | DS ---
[facility] Detox Discharge Summary Admission Date: 07/28/18 Discharge Date: 07/30/18 - History Present History: Alcohol Dependence, Cocaine Dependence Additional Comments: PATIENT REPORTS THAT SHE HAS A FAMILY EMERGENCY TO ATTEND TO AND THAT SHE DOES NOT WISH TO REMAIN TO COMPLETE DETOX REGIMEN. RISKS OF LEAVING DETOX UNIT AGAINST MEDICAL ADVICE AND PRIOR TO COMPLETION OF DETOX REGIMEN EXPLAINED TO PATIENT. PATIENT ADVISED TO GO IMMEDIATELY TO NEAREST ER SHOULD ANY INTOLERABLE DETOX SYMPTOMS DEVELOP AT ANY TIME. PATIENT VERBALIZED UNDERSTANDING OF ALL INFORMATION / RECOMMENDATIONS PRESENTED TO HIM PRIOR TO DEPARTURE FROM DETOX UNIT. PATIENT LEFT DETOX UNIT IN STABLE MEDICAL CONDITION. Pertinent Past History: Nicotine Dependence, Weight Loss, Hypokalemia, History of Rosacea. - Physical Exam Results Vital Signs: Vital Signs Temperature 97.1 F L 07/30/18 09:18 Pulse Rate 90 07/30/18 09:18 Respiratory Rate 18 07/30/18 09:18 Blood Pressure 117/82 07/30/18 09:18 O2 Sat by Pulse Oximetry (%) Pertinent Admission Physical Exam Findings: WITHDRAWAL SYMPTOMS. Laboratory Tests 07/29/18 07/29/18 07/29/18 06:00 06:00 06:00 WBC 5.9 RBC 3.84 Hgb 12.1 Hct 36.0 MCV 93.9 MCH 31.4 MCHC 33.4 RDW 15.0 D Plt Count 386 D MPV 8.0 Sodium 140 Potassium 3.4 L Chloride 104 Carbon Dioxide 27 Anion Gap 9 BUN 8 Creatinine 0.8 Creat Clearance w eGFR > 60 Random Glucose 63 L Calcium 8.7 Total Bilirubin 0.3 AST 23 ALT 26 Alkaline Phosphatase 81 Total Protein 7.9 Albumin 3.8 RPR Titer Nonreactive LABS NOTED. - Treatment Hospital Course: Detoxed Safely - Medication Discharge Medications: Ambulatory Orders NK [No Known Home Medication] 08/03/15 - Diagnosis (1) Hypokalemia Status: Acute (2) Alcohol dependence with uncomplicated withdrawal Status: Acute (3) Cocaine dependence Status: Chronic (4) Nicotine dependence Status: Chronic Qualifiers: Nicotine product type: cigarettes Substance use status: uncomplicated Qualified Code(s): F17.210 - Nicotine dependence, cigarettes, uncomplicated (5) Rosacea Status: Chronic (6) Weight loss Status: Chronic - AMA Did Patient Leave Against Medical Advice: Yes (PT HAD FAMILY EMERGENCY AND DID NOT WISH TO REMAIN TO COMPLETE DETOX.)
[2018-07-30] MEDS ORDERED: chlordiazePOXIDE 5 MG CAPSULE PO SCH (17:00)
[2018-07-31] MEDS ORDERED: chlordiazePOXIDE HCL 10 MG CAPSULE PO SCH (17:00)
== END 2018-07-30 09:31 | disposition left against medical advice (07) | DRG 770 ==
LOC: YASAS 11:29 → Y3N 14:52
PROVIDERS: ADMIT Neuromusculoskeletal Medicine & OMM; ATTEND Neuromusculoskeletal Medicine & OMM
PROC: HZ2ZZZZ Detoxification Services for Substance Abuse Treatment (ICD-10-PCS; principal; 2018-07-28)
DX: F10.230 Alcohol dependence with withdrawal, uncomplicated (principal); F14.20 Cocaine dependence, uncomplicated; F17.210 Nicotine dependence, cigarettes, uncomplicated; E87.6 Hypokalemia; L71.9 Rosacea, unspecified; R63.4 Abnormal weight loss; Z68.26 Body mass index [BMI] 26.0-26.9, adult; Z59.0 Homelessness
CPT/HCPCS: 36415; 80053; 85027; 86593

== ENCOUNTER 2018-12-13 11:02 | Inpatient (IN) | payer OTHER | END 2018-12-15 13:10 | disposition left against medical advice (07) | LOC: YASAS 11:02 → Y3N 17:33 ==

== ENCOUNTER 2019-01-30 10:28 | Inpatient (IN) | payer OTHER ==
[2019-01-30 10:51] VITALS: BMI 23.6
--- NOTE | 2019-01-30 12:06 | HP ---
CIWA Score Nausea/Vomitin Muscle Tremors: 2 Anxiety: 2 Agitation: 2 Paroxysmal Sweats: 1-Minimal Palms Moist Orientation: 0-Oriented Tacttile Disturbances: 1-Very Mild Itch/Numbness Auditory Disturbances: 1-Very Mild Visual Disturbances: 0-None Headache: 2-Mild CIWA-Ar Total Score: 13 - Admission Criteria OASAS Guidelines: Admission for Medically Managed Detox: Requires at least one of the followin. CIWA greater than 12 2. Seizures within the past 24 hours 3. Delirium tremens within the past 24 hours 4. Hallucinations within the past 24 hours 5. Acute intervention needed for co occurring medical disorder 6. Acute intervention needed for co occurring psychiatric disorder 7. Severe withdrawal that cannot be handled at a lower level of care (continued vomiting, continued diarrhea, abnormal vital signs) requiring intravenous medication and/or fluids 8. Admission ROS S - HPI Chief Complaint: I need help o stop drinking alcohol and crack Allergies/Adverse Reactions: Allergies Allergy/AdvReac Type Severity Reaction Status Date / Time No Known Allergies Allergy Verified 01/30/19 10:38 History of Present Illness: this 48 years old female with alcohol and crack dependence seeking detox, withdrawal symptom,multiple admissions in detox,last detox 12/13/18 to 12/15/18 not completed syncope alcohol related no seizure non compliance in the past weight loss longest sobriety 2 years plan for rehab after detox anxiety,depression,insomnia last med remeron psoriasis Exam Limitations: No Limitations - Ebola screening Have you traveled outside of the country in the last 21 days: No Have you had contact with anyone from an Ebola affected area: No - Review of Systems Constitutional: Loss of Appetite, Malaise, Night Sweats, Changes in sleep, Weakness, Unintentional Wgt. Loss EENT: reports: Tearing, Nose Congestion Respiratory: reports: No Symptoms reported Cardiac: reports: No Symptoms Reported GI: reports: Diarrhea, Nausea, Poor Appetite, Abdominal cramping : reports: No Symptoms Reported Musculoskeletal: reports: No Symptoms Reported, Back Pain, Muscle Pain Integumentary: reports: Dryness Neuro: reports: Headache, Tremors Endocrine: reports: No Symptoms Reported Hematology: reports: No Symptoms Reported Psychiatric: reports: No Sypmtoms Reported, Judgement Intact, Mood/Affect Appropiate, Orientated x3, Anxious, Depressed (insomnia) Other Systems: Reviewed and Negative Patient History - Patient Medical History Hx Anemia: No Hx Asthma: No Hx Chronic Obstructive Pulmonary Disease (COPD): No Hx Cancer: No Hx Cardiac Disorders: No Hx Congestive Heart Failure: No Hx Hypertension: No Hx Hypercholesterolemia: No Hx Pacemaker: No HX Cerebrovascular Accident: No Hx Seizures: No Hx Dementia: No Hx Diabetes: No Hx Gastrointestinal Disorders: No Hx Liver Disease: No Hx Genitourinary Disorders: No Hx Sexually Transmitted Disorders: No Hx Renal Disease (ESRD): No Hx Thyroid Disease: No Hx Human Immunodeficiency Virus (HIV): No (last 12/21 ngative) Hx Hepatitis C: No (last tested 04/18) Hx Depression: Yes (anxiety) Hx Suicide Attempt: No Hx Bipolar Disorder: No Hx Schizophrenia: No Other Medical History: no suicidal,no homicidal - Patient Surgical History Past Surgical History: No Hx Neurologic Surgery: No Hx Cataract Extraction: No Hx Cardiac Surgery: No Hx Lung Surgery: No Hx Breast Surgery: No Hx Breast Biopsy: No Hx Abdominal Surgery: No Hx Appendectomy: No Hx Cholecystectomy: No Hx Genitourinary Surgery: No Hx Section: No Hx Orthopedic Surgery: No Other Surgical History: L foot sx in 2016 from dog bite. Anesthesia Reaction: No - PPD History Previous Implant?: Yes Documented Results: Negative w/proof Implanted On Prior R Admission?: Yes Date: 12/15/18 Results: 0 mm PPD to be Administered?: No - Reproductive History Patient is a Female of Child Bearing Age (11 -55 yrs old): Yes Last Menstrual Period: 01/02/19 Patient : No - Smoking Cessation Smoking history: Current every day smoker Have you smoked in the past 12 months: Yes Aproximately how many cigarettes per day: 10 Hx Chewing Tobacco Use: No Initiated information on smoking cessation: Yes 'Breaking Loose' booklet given: 01/30/19 - Substance & Tx. History Hx Alcohol Use: Yes Hx Substance Use: Yes Substance Use Type: Alcohol, Cocaine Hx Substance Use Treatment: Yes ([facility] 12/13/18 to 12/15/18 not completed) - Substances abused Alcohol Substance route: Oral Frequency: Daily Amount used: VODKA- 2 PTS 12 PK 24OZ BEER Age of first use: 22 Date of last use: 01/30/19 Crack Substance route: Smoking Frequency: Daily Amount used: $50- $100 Age of first use: 35 Date of last use: 01/29/19 Family Disease History - Family Disease History Family Disease History: Heart Disease: Mother (,colon; HTN), CA: Father (decedased, prostate), Mother, Other: Brother (three - healthy (one drinks)), Sister (one - healthy) Admission Physical Exam [facility] - Vital Signs Vital Signs: Vital Signs - 24 hr 01/30/19 01/30/19 10:38 11:16 Temperature 98 F 98 F Pulse Rate 68 68 Respiratory 18 18 Rate Blood Pressure 140/100 140/100 - Physical General Appearance: Yes: Moderate Distress, Tremorous, Irritable, Sweating, Anxious HEENTM: Yes: Normal ENT Inspection, CYNDI, Pharynx Normal Respiratory: Yes: Lungs Clear, Normal Breath Sounds, No Respiratory Distress Neck: Yes: Within Normal Limits, Supple, Trachea in good position Breast: Yes: Breast Exam Deferred Cardiology: Yes: Within Normal Limits, Regular Rhythm, Regular Rate, S1, S2 Abdominal: Yes: Within Normal Limits, Normal Bowel Sounds, Non Tender, Soft Genitourinary: Yes: Within Normal Limits Back: Yes: Within Normal Limits, Muscle Spasm Musculoskeletal: Yes: full range of Motion, Back pain, Muscle Pain Extremities: Yes: Within Normal Limits, Normal Range of Motion, Tremors Neurological: Yes: hr shared services consultant II-XII NML intact, Fully Oriented, Alert, Motor Strength 5/5 Integumentary: Yes: Dry, Other (history of psoriasis) Lymphatic: Yes: Within Normal Limits - Diagnostic (1) Alcohol dependence with uncomplicated withdrawal Current Visit: Yes Status: Acute (2) Cocaine dependence Current Visit: Yes Status: Chronic (3) Nicotine dependence Current Visit: No Status: Chronic Qualifiers: Nicotine product type: cigarettes Substance use status: uncomplicated Qualified Code(s): F17.210 - Nicotine dependence, cigarettes, uncomplicated (4) Psoriasis Current Visit: No Status: Chronic (5) Weight loss Current Visit: No Status: Chronic (6) Syncope Current Visit: Yes Status: Acute (7) Insomnia Current Visit: Yes Status: Acute (8) Anxiety and depression Current Visit: Yes Status: Acute Cleared for Admission [facility] - Detox or Rehab [facility] Level of Care: Medically Managed Detox Regimen/Protocol: Librium Breathalyzer - Breathalyzer Breathalyzer: 0 Urine Drug Screen - Test Device Lot number: [id number] Expiration date: 11/01/20 - Control Is test valid?: Yes - Results Drug screen NEGATIVE: No Urine drug screen results: ITA-Cocaine, MET-Methamphetamine, BZO-Benzodiazepines Inpatient Rehab Admission - Rehab Decision to Admit Inpatient rehab admission?: No
[2019-01-30] MEDS ORDERED: hydrOXYzine PAMOATE 25 MG CAPSULE (FP) PO PRN (12:17)
[2019-01-30] MEDS ORDERED: ACETAMINOPHEN 325 MG TABLET (FP) PO PRN ×2 (12:17)
[2019-01-30] MEDS ORDERED: MAGNESIUM CITRATE 300 ML BOTTLE PO PRN (12:17)
[2019-01-30] MEDS ORDERED: IBUPROFEN 400 MG TABLET (FP) PO PRN (12:17)
[2019-01-30] MEDS ORDERED: MAG HYDROX/AL HYDROX/SIMETH 30 ML UNIT-DOSE CUP PO PRN (12:17)
[2019-01-30] MEDS ORDERED: BISMUTH SUBSALICYLATE 524 MG/30 ML UD PO PRN (12:17)
[2019-01-30] MEDS ORDERED: MAGNESIUM HYDROX 2400MG/30ML ORAL SUSPENSION 30 ML CUP PO PRN (12:17)
[2019-01-30] MEDS: NICOTINE 21 MG/24 HOURS TOPICAL PATCH TD SCH (13:18)
[2019-01-30] MEDS: chlordiazePOXIDE HCL 25 MG CAPSULE PO PRN (13:18)
[2019-01-30] MEDS: COLLOIDAL OATMEAL 1 BAR EACH TP PRN (13:19)
--- NOTE | 2019-01-30 14:48 | CONSULT ---
[facility] Psychiatric Consult - Data Date of interview: 01/30/19 Admission source: [facility] Identifying data: Patient is a 48 year old female, without children, unemployed, domiciled, and is financially supported by family and food stamps. This is one of multiple admissions for patient. Patient admitted to for alcohol and cocaine dependence. Substance Abuse History: Smoking Cessation. Smoking history: Current every day smoker. Have you smoked in the past 12 months: Yes. Aproximately how many cigarettes per day: 10. Hx Chewing Tobacco Use: No. Initiated information on smoking cessation: Yes. 'Breaking Loose' booklet given: 01/30/19. - Substance & Tx. History. Hx Alcohol Use: Yes. Hx Substance Use: Yes. Substance Use Type : Alcohol, Cocaine. Hx Substance Use Treatment: Yes ([facility] 12/13/18 to 12/15/18 not completed). - Substances abused. Alcohol. Substance route: Oral. Frequency: Daily. Amount used: VODKA- 2 PTS 12 PK 24OZ BEER. Age of first use : 22. Date of last use: 01/30/19. Crack. Substance route: Smoking. Frequency: Daily. Amount used: $50- $100. Age of first use: 35. Date of last use: 01/29/19 Medical History: L foot sx in 2016 from dog bite. Psychiatric History: Patient denies h/o psychiatric hospitalization, outpatient care, and suicide attempt. At present patient reports stable mood but feels mildly anxious. Physical/Sexual Abuse/Trauma History: denies. Mental Status Exam - Mental Status Exam Alert and Oriented to: Time, Place, Person Cognitive Function: Good Patient Appearance: Well Groomed Mood: Anxious, Euthymic Affect: Mood Congruent Patient Behavior: Cooperative Speech Pattern: Appropriate Voice Loudness: Normal Thought Process: Goal Oriented Thought Disorder: Not Present Hallucinations: Denies Suicidal Ideation: Denies Homicidal Ideation: Denies Insight/Judgement: Poor Sleep: Fair Appetite: Fair Muscle strength/Tone: Normal Gait/Station: Normal Psychiatric Findings - Problem List ([place] 1, 2,3) (1) Alcohol dependence with uncomplicated withdrawal Current Visit: Yes Status: Acute (2) Cocaine dependence Current Visit: Yes Status: Chronic (3) Substance-induced sleep disorder Current Visit: Yes Status: Acute - Initial Treatment Plan Initial Treatment Plan: Psychoeducation provided. Detoxification in progress. Will order vistaril 50mg q4h. Benefits and side effects discussed. Verbal consent given.
[2019-01-30] MEDS: FLUOCINONIDE 0.05% CREAM (60 GM TUBE) TP SCH ×2 (15:48→23:13)
[2019-01-30] MEDS: chlordiazePOXIDE HCL 25 MG CAPSULE PO SCH ×2 (17:27→22:31)
[2019-01-30] MEDS: hydrOXYzine PAMOATE 50 MG CAPSULE (FP) PO PRN (17:31)
[2019-01-30] MEDS: MELATONIN 5 MG TABLETS PO PRN (22:31)
[2019-01-30] MEDS: THIAMINE HCL 100 MG TABLET (FP) PO SCH (22:31)
[2019-01-30] MEDS: NICOTINE POLACRILEX 2 MG GUM BUC PRN (22:33)
[2019-01-31] MEDS: chlordiazePOXIDE HCL 25 MG CAPSULE PO SCH ×4 (06:08→22:36)
[2019-01-31] MEDS: FLUOCINONIDE 0.05% CREAM (60 GM TUBE) TP SCH ×2 (10:33→22:51)
[2019-01-31 10:34] LABS: ALBUMIN 3.5 g/dl (3.4-5.0); BILIRUBIN,TOTAL 0.4 mg/dL (0.2-1); BLOOD UREA NITROGEN 6.4 mg/dL (7-18); CREATININE 0.8 mg/dL (0.55-1.3); POTASSIUM 3.9 mmol/L (3.5-5.1); TOT PROT 7.4 g/dl (6.4-8.2)
[2019-01-31] MEDS: NICOTINE 21 MG/24 HOURS TOPICAL PATCH TD SCH (10:34)
[2019-01-31] MEDS: NICOTINE POLACRILEX 2 MG GUM BUC PRN ×3 (10:34→17:39)
[2019-01-31] MEDS: PRENATAL VITAMINS W/ FOLIC ACID TABLET (FP) PO SCH (10:34)
[2019-01-31 11:01] LABS: HEMATOCRIT 35.6 % (32.4-45.2); HEMOGLOBIN 11.9 GM/dL (10.7-15.3); MCH 31.8 pg (25.7-33.7); MCHC 33.4 g/dl (32.0-36.0); MEAN CELL VOLUME 95.2 fl (80-96); MEAN PLT VOLUME 8.5 fl (7.5-11.1); PLATELET COUNT 290 K/MM3 (134-434); RBC 3.74 M/mm3 (3.60-5.2); RDW 15.1 % (11.6-15.6); WHITE BLOOD COUNT 3.5 K/mm3 (4.0-10.0)
[2019-01-31 11:06] LABS: PH,URINE 7.5 (5.0-8.0); URINE APPEARANCE CLEAR; URINE BILIRUBIN NEGATIVE (NEGATIVE); URINE COLOR YELLOW; URINE GLUCOSE (UA) NEGATIVE (NEGATIVE); URINE KETONE NEGATIVE (NEGATIVE); URINE LEUK ESTERASE NEGATIVE (NEGATIVE); URINE NITRITE NEGATIVE (NEGATIVE); URINE PROTEIN NEGATIVE (NEGATIVE); URINE UROBILINOGEN 0.2 mg/dL (0.2-1.0)
--- NOTE | 2019-01-31 11:43 | PN ---
S CIWA - CIWA Score Nausea/Vomitin-No Nausea/No Vomiting Muscle Tremors: 3 Anxiety: 3 Agitation: 3 Paroxysmal Sweats: 3 Orientation: 0-Oriented Tacttile Disturbances: 0-None Auditory Disturbances: 0-None Visual Disturbances: 0-None Headache: 0-None Present CIWA-Ar Total Score: 12 S Progress Note (SOAP) Subjective: sweats shakes interrupted sleep body aches irritable Objective: 01/31/19 11:41 Vital Signs Temperature 97.6 F 01/31/19 09:27 Pulse Rate 69 01/31/19 09:27 Respiratory Rate 18 01/31/19 09:27 Blood Pressure 130/84 01/31/19 09:27 O2 Sat by Pulse Oximetry (%) Laboratory Tests 01/31/19 01/31/19 06:30 07:00 Sodium 141 Potassium 3.9 Chloride 106 Carbon Dioxide 30 Anion Gap 5 L BUN 6.4 L Creatinine 0.8 Est GFR (CKD-EPI)AfAm 101.04 Est GFR (CKD-EPI)NonAf 87.18 Random Glucose 103 Calcium 9.0 Total Bilirubin 0.4 AST 21 ALT 20 Alkaline Phosphatase 67 Total Protein 7.4 Albumin 3.5 Urine Color Yellow Urine Appearance Clear Urine pH 7.5 D Ur Specific [place] 1.011 Urine Protein Negative Urine Glucose (UA) Negative Urine Ketones Negative Urine Blood Negative Urine Nitrite Negative Urine Bilirubin Negative Urine Urobilinogen 0.2 Ur Leukocyte Esterase Negative labs noted aaox3 ambulating no acute distress Assessment: 01/31/19 11:43 withdrawal sx Plan: continue detox increase fluids
[2019-01-31] MEDS: hydrOXYzine PAMOATE 50 MG CAPSULE (FP) PO PRN (17:36)
[2019-01-31] MEDS: THIAMINE HCL 100 MG TABLET (FP) PO SCH (22:35)
[2019-02-01] MEDS: chlordiazePOXIDE HCL 25 MG CAPSULE PO SCH ×4 (06:35→22:22)
[2019-02-01] MEDS: FLUOCINONIDE 0.05% CREAM (60 GM TUBE) TP SCH ×2 (10:39→22:21)
[2019-02-01] MEDS: PRENATAL VITAMINS W/ FOLIC ACID TABLET (FP) PO SCH (10:39)
[2019-02-01] MEDS: NICOTINE 21 MG/24 HOURS TOPICAL PATCH TD SCH (10:39)
--- NOTE | 2019-02-01 11:27 | PN ---
[facility] CIWA - CIWA Score Nausea/Vomitin-No Nausea/No Vomiting Muscle Tremors: 3 Anxiety: 3 Agitation: 2 Paroxysmal Sweats: 2 Orientation: 0-Oriented Tacttile Disturbances: 0-None Auditory Disturbances: 0-None Visual Disturbances: 0-None Headache: 0-None Present CIWA-Ar Total Score: 10 S Progress Note (SOAP) Subjective: sweats interrupted sleep Objective: 02/01/19 11:27 Vital Signs Temperature 98.1 F 02/01/19 09:35 Pulse Rate 71 02/01/19 09:35 Respiratory Rate 18 02/01/19 09:35 Blood Pressure 129/79 02/01/19 09:35 O2 Sat by Pulse Oximetry (%) Laboratory Tests 01/31/19 01/31/19 01/31/19 06:30 06:30 06:30 WBC 3.5 L RBC 3.74 Hgb 11.9 Hct 35.6 MCV 95.2 MCH 31.8 MCHC 33.4 RDW 15.1 Plt Count 290 D MPV 8.5 Sodium 141 Potassium 3.9 Chloride 106 Carbon Dioxide 30 Anion Gap 5 L BUN 6.4 L Creatinine 0.8 Est GFR (CKD-EPI)AfAm 101.04 Est GFR (CKD-EPI)NonAf 87.18 Random Glucose 103 Calcium 9.0 Total Bilirubin 0.4 AST 21 ALT 20 Alkaline Phosphatase 67 Total Protein 7.4 Albumin 3.5 Urine Color Urine Appearance Urine pH Ur Specific [place] Urine Protein Urine Glucose (UA) Urine Ketones Urine Blood Urine Nitrite Urine Bilirubin Urine Urobilinogen Ur Leukocyte Esterase RPR Titer Nonreactive 01/31/19 07:00 WBC RBC Hgb Hct MCV MCH MCHC RDW Plt Count MPV Sodium Potassium Chloride Carbon Dioxide Anion Gap BUN Creatinine Est GFR (CKD-EPI)AfAm Est GFR (CKD-EPI)NonAf Random Glucose Calcium Total Bilirubin AST ALT Alkaline Phosphatase Total Protein Albumin Urine Color Yellow Urine Appearance Clear Urine pH 7.5 D Ur Specific [place] 1.011 Urine Protein Negative Urine Glucose (UA) Negative Urine Ketones Negative Urine Blood Negative Urine Nitrite Negative Urine Bilirubin Negative Urine Urobilinogen 0.2 Ur Leukocyte Esterase Negative RPR Titer aaox3 ambulating no acute distress Assessment: 02/01/19 11:27 withdrawal sx Plan: continue detox increase fluids
--- NOTE | 2019-02-01 11:33 | PN ---
S Progress Note Note: group underwriter witnessed pt being aggressive, verbally abusive and cursing with foul language to nurse during medication time. Pt was asked to refrain from doing these actions and pt deliberately threw her cup filled with apple juice onto the floor. counseling coating mixer supervisor was called to speak with patient and have her contracted that her behavior is not to be tolerated and verbal abuse to staff is a zero tolerance.
[2019-02-01] MEDS: MENTHOL/PHENOL 1 EACH UD MM PRN (13:50)
[2019-02-01] MEDS: chlordiazePOXIDE HCL 25 MG CAPSULE PO PRN (14:08)
[2019-02-01] MEDS: hydrOXYzine PAMOATE 50 MG CAPSULE (FP) PO PRN ×2 (14:09→20:49)
[2019-02-01] MEDS: NICOTINE POLACRILEX 2 MG GUM BUC PRN (20:49)
[2019-02-01] MEDS: THIAMINE HCL 100 MG TABLET (FP) PO SCH (22:21)
[2019-02-01] MEDS: TOLNAFTATE 1% CREAM 15 GM TUBE TP SCH (22:21)
[2019-02-01] MEDS: MELATONIN 5 MG TABLETS PO PRN (22:22)
[2019-02-02] MEDS ORDERED: chlordiazePOXIDE HCL 10 MG CAPSULE PO PRN
[2019-02-02] MEDS: chlordiazePOXIDE HCL 10 MG CAPSULE PO SCH ×4 (07:05→22:26)
[2019-02-02] MEDS: PRENATAL VITAMINS W/ FOLIC ACID TABLET (FP) PO SCH (10:53)
[2019-02-02] MEDS: NICOTINE 21 MG/24 HOURS TOPICAL PATCH TD SCH (10:54)
[2019-02-02] MEDS: TOLNAFTATE 1% CREAM 15 GM TUBE TP SCH (10:54)
[2019-02-02] MEDS: FLUOCINONIDE 0.05% CREAM (60 GM TUBE) TP SCH (11:41)
--- NOTE | 2019-02-02 12:30 | PN ---
S CIWA - CIWA Score Nausea/Vomitin-No Nausea/No Vomiting Muscle Tremors: 3 Anxiety: 1-Mildly Anxious Agitation: 2 Paroxysmal Sweats: 1-Minimal Palms Moist Orientation: 0-Oriented Tacttile Disturbances: 0-None Auditory Disturbances: 0-None Visual Disturbances: 0-None Headache: 0-None Present CIWA-Ar Total Score: 7 BHS Progress Note (SOAP) Subjective: sweats irritable Objective: 02/02/19 12:30 Vital Signs Temperature 98.1 F 02/02/19 09:47 Pulse Rate 73 02/02/19 09:47 Respiratory Rate 18 02/02/19 09:47 Blood Pressure 119/67 02/02/19 09:47 O2 Sat by Pulse Oximetry (%) Laboratory Tests 01/31/19 01/31/19 01/31/19 06:30 06:30 06:30 WBC 3.5 L RBC 3.74 Hgb 11.9 Hct 35.6 MCV 95.2 MCH 31.8 MCHC 33.4 RDW 15.1 Plt Count 290 D MPV 8.5 Sodium 141 Potassium 3.9 Chloride 106 Carbon Dioxide 30 Anion Gap 5 L BUN 6.4 L Creatinine 0.8 Est GFR (CKD-EPI)AfAm 101.04 Est GFR (CKD-EPI)NonAf 87.18 Random Glucose 103 Calcium 9.0 Total Bilirubin 0.4 AST 21 ALT 20 Alkaline Phosphatase 67 Total Protein 7.4 Albumin 3.5 Urine Color Urine Appearance Urine pH Ur Specific [place] Urine Protein Urine Glucose (UA) Urine Ketones Urine Blood Urine Nitrite Urine Bilirubin Urine Urobilinogen Ur Leukocyte Esterase RPR Titer Nonreactive 01/31/19 07:00 WBC RBC Hgb Hct MCV MCH MCHC RDW Plt Count MPV Sodium Potassium Chloride Carbon Dioxide Anion Gap BUN Creatinine Est GFR (CKD-EPI)AfAm Est GFR (CKD-EPI)NonAf Random Glucose Calcium Total Bilirubin AST ALT Alkaline Phosphatase Total Protein Albumin Urine Color Yellow Urine Appearance Clear Urine pH 7.5 D Ur Specific [place] 1.011 Urine Protein Negative Urine Glucose (UA) Negative Urine Ketones Negative Urine Blood Negative Urine Nitrite Negative Urine Bilirubin Negative Urine Urobilinogen 0.2 Ur Leukocyte Esterase Negative RPR Titer aaox3 ambulating no acute distress Assessment: 02/02/19 12:30 withdrawal sx Plan: continue detox increase fluids
[2019-02-02] MEDS: NICOTINE POLACRILEX 2 MG GUM BUC PRN ×2 (12:35→22:27)
[2019-02-02] MEDS: COLLOIDAL OATMEAL 1 BAR EACH TP PRN (14:59)
[2019-02-02] MEDS: METHOCARBAMOL 500 MG TABLET PO PRN (14:59)
[2019-02-02] MEDS: hydrOXYzine PAMOATE 50 MG CAPSULE (FP) PO PRN (14:59)
[2019-02-02] MEDS: MENTHOL/PHENOL 1 EACH UD MM PRN (16:36)
[2019-02-02] MEDS: MELATONIN 5 MG TABLETS PO PRN (22:26)
[2019-02-02] MEDS: THIAMINE HCL 100 MG TABLET (FP) PO SCH (22:26)
[2019-02-03] MEDS: FLUOCINONIDE 0.05% CREAM (60 GM TUBE) TP SCH ×3 (00:12→22:39)
[2019-02-03] MEDS: TOLNAFTATE 1% CREAM 15 GM TUBE TP SCH ×3 (00:13→22:39)
[2019-02-03] MEDS: NICOTINE POLACRILEX 2 MG GUM BUC PRN ×2 (04:36→14:24)
[2019-02-03] MEDS: chlordiazePOXIDE HCL 10 MG CAPSULE PO SCH ×2 (05:57→17:43)
[2019-02-03] MEDS: METHOCARBAMOL 500 MG TABLET PO PRN ×2 (05:59→13:08)
[2019-02-03] MEDS: PRENATAL VITAMINS W/ FOLIC ACID TABLET (FP) PO SCH (10:42)
[2019-02-03] MEDS: NICOTINE 21 MG/24 HOURS TOPICAL PATCH TD SCH (10:43)
--- NOTE | 2019-02-03 13:48 | PN ---
[facility] CIWA - CIWA Score Nausea/Vomitin-No Nausea/No Vomiting Muscle Tremors: 1-None Visible, but [place] Anxiety: 1-Mildly Anxious Agitation: 1-Slight > Activity Paroxysmal Sweats: 1-Minimal Palms Moist Orientation: 0-Oriented Tacttile Disturbances: 0-None Auditory Disturbances: 0-None Visual Disturbances: 0-None Headache: 0-None Present CIWA-Ar Total Score: 4 BHS Progress Note (SOAP) Subjective: agitation Objective: 02/03/19 13:48 Vital Signs Temperature 98.1 F 02/03/19 09:24 Pulse Rate 79 02/03/19 09:24 Respiratory Rate 18 02/03/19 09:24 Blood Pressure 114/68 02/03/19 09:24 O2 Sat by Pulse Oximetry (%) aaox3 ambulating no acute distress Assessment: 02/03/19 13:49 mild withdrawal sx Plan: continue detox d/c in am
[2019-02-03] MEDS: hydrOXYzine PAMOATE 50 MG CAPSULE (FP) PO PRN (17:43)
[2019-02-03 21:06] VITALS: TEMP 98.1
[2019-02-03] MEDS: THIAMINE HCL 100 MG TABLET (FP) PO SCH (22:37)
[2019-02-03] MEDS: MELATONIN 5 MG TABLETS PO PRN (22:37)
[2019-02-04] MEDS ORDERED: chlordiazePOXIDE HCL 10 MG CAPSULE PO ONE (05:00)
[2019-02-04] MEDS: NICOTINE POLACRILEX 2 MG GUM BUC PRN (06:26)
[2019-02-04] MEDS: MENTHOL/PHENOL 1 EACH UD MM PRN (06:27)
[2019-02-04 06:53] VITALS: BP 112/62; PULSE 74
--- NOTE | 2019-02-04 12:32 | DS ---
[facility] Detox Discharge Summary Admission Date: 01/30/19 Discharge Date: 02/04/19 - History Present History: Alcohol Dependence, Cocaine Dependence Additional Comments: Pt is medically cleared and is discharge today. Pt completed her detox protocol. Pt is encouraged to follow-up with CD outpatient program and also to follow-up with her PMD. Pt verbalized understanding of information given. Pt is alert and oriented x3 and in no acute respiratory distress. Pertinent Past History: H/o alcohol and cocaine use disorder. - Physical Exam Results Vital Signs: Vital Signs Temperature 98.1 F 02/04/19 06:52 Pulse Rate 74 02/04/19 06:52 Respiratory Rate 16 02/04/19 06:52 Blood Pressure 112/62 02/04/19 06:52 O2 Sat by Pulse Oximetry (%) Vital Signs 02/04/19 06:52 Temperature 98.1 F Pulse Rate 74 Respiratory 16 Rate Blood Pressure 112/62 Lab Results WBC 3.5 K/mm3 (4.0-10.0) L 01/31/19 06:30 RBC 3.74 M/mm3 (3.60-5.2) 01/31/19 06:30 Hgb 11.9 GM/dL (10.7-15.3) 01/31/19 06:30 Hct 35.6 % (32.4-45.2) 01/31/19 06:30 MCV 95.2 fl (80-96) 01/31/19 06:30 MCHC 33.4 g/dl (32.0-36.0) 01/31/19 06:30 RDW 15.1 % (11.6-15.6) 01/31/19 06:30 Plt Count 290 K/MM3 (134-434) D 01/31/19 06:30 Sodium 141 mmol/L (136-145) 01/31/19 06:30 Potassium 3.9 mmol/L (3.5-5.1) 01/31/19 06:30 Chloride 106 mmol/L (98-107) 01/31/19 06:30 Carbon Dioxide 30 mmol/L (21-32) 01/31/19 06:30 Anion Gap 5 MMOL/L (8-16) L 01/31/19 06:30 BUN 6.4 mg/dL (7-18) L 01/31/19 06:30 Creatinine 0.8 mg/dL (0.55-1.3) 01/31/19 06:30 Random Glucose 103 mg/dL (74-106) 01/31/19 06:30 Calcium 9.0 mg/dL (8.5-10.1) 01/31/19 06:30 Labs pending. Pertinent Admission Physical Exam Findings: withdrawal symptoms. - Treatment Hospital Course: Detox Protocol Followed, Detoxed Safely, Responded well, Discharged Condition Good - Medication Discharge Medications: Ambulatory Orders NK [No Known Home Medication] 08/03/15 - Diagnosis (1) Alcohol dependence with uncomplicated withdrawal Status: Acute (2) Hypokalemia Status: Acute (3) Leukopenia Status: Acute Qualifiers: Leukopenia type: unspecified Qualified Code(s): D72.819 - Decreased white blood cell count, unspecified (4) Syncope Status: Acute (5) Cocaine dependence Status: Chronic (6) Nicotine dependence Status: Chronic Qualifiers: Nicotine product type: cigarettes Substance use status: uncomplicated Qualified Code(s): F17.210 - Nicotine dependence, cigarettes, uncomplicated (7) Psoriasis Status: Chronic (8) Weight loss Status: Chronic - AMA Did Patient Leave Against Medical Advice: No
== END 2019-02-04 08:32 | disposition home or self-care (01) | DRG 774 ==
LOC: YASAS 10:28 → Y6N 12:29
PROVIDERS: ADMIT Surgery; ATTEND Surgery
PROC: HZ2ZZZZ Detoxification Services for Substance Abuse Treatment (ICD-10-PCS; principal; 2019-01-30)
DX: F10.230 Alcohol dependence with withdrawal, uncomplicated (principal); F14.20 Cocaine dependence, uncomplicated; F17.210 Nicotine dependence, cigarettes, uncomplicated; F19.282 Other psychoactive substance dependence with psychoactive substance-induced sleep disorder; F41.8 Other specified anxiety disorders; F32.9 Major depressive disorder, single episode, unspecified; E87.6 Hypokalemia; D72.819 Decreased white blood cell count, unspecified; L40.9 Psoriasis, unspecified; R63.4 Abnormal weight loss; Z68.23 Body mass index [BMI] 23.0-23.9, adult; R55 Syncope and collapse; Z59.0 Homelessness
CPT/HCPCS: 36415; 80053; 81003; 85027; 86593

== ENCOUNTER 2019-04-01 11:50 | Inpatient (IN) | payer OTHER ==
[2019-04-01 15:50] VITALS: BMI 23.2
--- NOTE | 2019-04-01 16:32 | HP ---
CIWA Score Nausea/Vomitin Muscle Tremors: 3 Anxiety: 3 Agitation: 3 Paroxysmal Sweats: 1-Minimal Palms Moist Orientation: 0-Oriented Tacttile Disturbances: 1-Very Mild Itch/Numbness Auditory Disturbances: 0-None Visual Disturbances: 0-None Headache: 2-Mild CIWA-Ar Total Score: 15 - Admission Criteria [facility]ASAS Guidelines: Admission for Medically Managed Detox: Requires at least one of the followin. CIWA greater than 12 2. Seizures within the past 24 hours 3. Delirium tremens within the past 24 hours 4. Hallucinations within the past 24 hours 5. Acute intervention needed for co occurring medical disorder 6. Acute intervention needed for co occurring psychiatric disorder 7. Severe withdrawal that cannot be handled at a lower level of care (continued vomiting, continued diarrhea, abnormal vital signs) requiring intravenous medication and/or fluids 8. Admission ROS S - HPI Chief Complaint: i need help to stop drinking alcohol and cocaine Allergies/Adverse Reactions: Allergies Allergy/AdvReac Type Severity Reaction Status Date / Time No Known Allergies Allergy Verified 04/01/19 15:45 History of Present Illness: this 48 years old female with alcohol and cocaine dependence seeking detox, withdrawal symptom, denied seizure denied syncope eczema tinea pedis weight loss anxiety,depression,insomnia,non compliance longest sobriety 2 years - Ebola screening Have you traveled outside of the country in the last 21 days: No (N) Have you had contact with anyone from an Ebola affected area: No Do you have a fever: No - Review of Systems Constitutional: Chills, Loss of Appetite, Malaise, Night Sweats, Changes in sleep, Weakness, Unintentional Wgt. Loss EENT: reports: Tearing Respiratory: reports: No Symptoms reported Cardiac: reports: No Symptoms Reported GI: reports: Diarrhea, Nausea, Poor Appetite, Abdominal cramping : reports: No Symptoms Reported Musculoskeletal: reports: Back Pain, Muscle Pain Integumentary: reports: Dryness Neuro: reports: Headache, Tremors Endocrine: reports: No Symptoms Reported Hematology: reports: No Symptoms Reported Psychiatric: reports: No Sypmtoms Reported, Judgement Intact, Mood/Affect Appropiate, Orientated x3, Agitated, Depressed, other (bipolar disorder,insonia, non compliance) Patient History - Patient Medical History Hx Anemia: No Hx Asthma: No Hx Chronic Obstructive Pulmonary Disease (COPD): No Hx Cancer: No Hx Cardiac Disorders: No Hx Congestive Heart Failure: No Hx Hypertension: No Hx Hypercholesterolemia: No Hx Pacemaker: No HX Cerebrovascular Accident: No Hx Seizures: No Hx Dementia: No Hx Diabetes: No Hx Gastrointestinal Disorders: No Hx Liver Disease: No Hx Genitourinary Disorders: No Hx Sexually Transmitted Disorders: No Hx Renal Disease (ESRD): No Hx Thyroid Disease: No Hx Human Immunodeficiency Virus (HIV): No (last 12/21 negative) Hx Hepatitis C: No (last tested 04/18) Hx Depression: Yes (anxiety) Hx Suicide Attempt: No Hx Bipolar Disorder: No Hx Schizophrenia: No Other Medical History: no suicidal,no homicidal - Patient Surgical History Past Surgical History: No Hx Neurologic Surgery: No Hx Cataract Extraction: No Hx Cardiac Surgery: No Hx Lung Surgery: No Hx Breast Surgery: No Hx Breast Biopsy: No Hx Abdominal Surgery: No Hx Appendectomy: No Hx Cholecystectomy: No Hx Genitourinary Surgery: No Hx Section: No Hx Orthopedic Surgery: No Other Surgical History: L foot sx in 2015 from dog bite. Anesthesia Reaction: No - PPD History Previous Implant?: Yes Documented Results: Negative w/proof Implanted On Prior R Admission?: No Date: 12/15/18 Results: 0 mm PPD to be Administered?: No - Reproductive History Patient is a Female of Child Bearing Age (11 -55 yrs old): Yes Last Menstrual Period: 03/06/19 Patient : No - Smoking Cessation Smoking history: Current every day smoker Have you smoked in the past 12 months: Yes Aproximately how many cigarettes per day: 10 Hx Chewing Tobacco Use: No Initiated information on smoking cessation: Yes 'Breaking Loose' booklet given: 04/01/19 - Substance & Tx. History Hx Alcohol Use: Yes Hx Substance Use: Yes Substance Use Type: Alcohol, Cocaine Hx Substance Use Treatment: Yes ([facility] 01/30/19 to 02/04/19) - Substances abused Alcohol Substance route: Oral Frequency: Daily Amount used: 1 gallon vodka & (6) 24OZ BEER Age of first use: 22 Date of last use: 04/01/19 Crack Substance route: Smoking Frequency: Daily Amount used: $100 Age of first use: 35 Date of last use: 03/31/19 Admission Physical Exam BHS - Vital Signs Vital Signs: Vital Signs - 24 hr 04/01/19 15:46 Temperature 98.4 F Pulse Rate 86 Respiratory 20 Rate Blood Pressure 157/94 - Physical General Appearance: Yes: Moderate Distress, Tremorous, Irritable, Sweating, Anxious HEENTM: Yes: Normal ENT Inspection, CYNDI, Pharynx Normal Respiratory: Yes: Lungs Clear, Normal Breath Sounds, No Respiratory Distress Neck: Yes: Within Normal Limits, Supple, Trachea in good position Breast: Yes: Breast Exam Deferred Cardiology: Yes: Within Normal Limits, Regular Rhythm, Regular Rate, S1, S2 Abdominal: Yes: Within Normal Limits, Normal Bowel Sounds, Non Tender, Soft Genitourinary: Yes: Within Normal Limits Back: Yes: Muscle Spasm Musculoskeletal: Yes: Back pain, Muscle Pain Extremities: Yes: Tremors Neurological: Yes: farmworkers II-XII NML intact, Fully Oriented, Alert, Motor Strength 5/5 Integumentary: Yes: Dry Lymphatic: Yes: Within Normal Limits - Diagnostic (1) Alcohol dependence with uncomplicated withdrawal Current Visit: No Status: Acute (2) Anxiety and depression Current Visit: No Status: Acute (3) Insomnia Current Visit: No Status: Acute (4) Cocaine dependence Current Visit: No Status: Chronic (5) Weight loss Current Visit: No Status: Chronic (6) Eczema Current Visit: Yes Status: Acute (7) Tinea pedis Current Visit: Yes Status: Acute Cleared for Admission [facility] - Detox or Rehab [facility] Level of Care: Medically Managed Detox Regimen/Protocol: Librium Breathalyzer - Breathalyzer Breathalyzer: 0.032 Urine Drug Screen - Test Device Lot number: [id number] Expiration date: 12/02/20 - Control Is test valid?: Yes - Results Drug screen NEGATIVE: Yes Urine drug screen results: ITA-Cocaine, BZO-Benzodiazepines Inpatient Rehab Admission - Rehab Decision to Admit Inpatient rehab admission?: No
[2019-04-01] MEDS ORDERED: ACETAMINOPHEN 325 MG TABLET (FP) PO PRN ×2 (16:47)
[2019-04-01] MEDS ORDERED: MAGNESIUM CITRATE 300 ML BOTTLE PO PRN (16:47)
[2019-04-01] MEDS ORDERED: MAGNESIUM HYDROX 2400MG/30ML ORAL SUSPENSION 30 ML CUP PO PRN (16:47)
[2019-04-01] MEDS ORDERED: MAG HYDROX/AL HYDROX/SIMETH 30 ML UNIT-DOSE CUP PO PRN (16:47)
[2019-04-01] MEDS ORDERED: IBUPROFEN 400 MG TABLET (FP) PO PRN (16:47)
[2019-04-01] MEDS ORDERED: BISMUTH SUBSALICYLATE 524 MG/30 ML UD PO PRN (16:47)
[2019-04-01] MEDS ORDERED: MENTHOL/PHENOL 1 EACH UD MM PRN (16:47)
[2019-04-01] MEDS ORDERED: NICOTINE POLACRILEX 2 MG GUM BUC PRN (16:47)
[2019-04-01] MEDS ORDERED: chlordiazePOXIDE HCL 25 MG CAPSULE PO PRN (16:47)
[2019-04-01] MEDS: NICOTINE 21 MG/24 HOURS TOPICAL PATCH TD SCH (17:43)
[2019-04-01] MEDS: chlordiazePOXIDE HCL 25 MG CAPSULE PO SCH ×2 (17:43→22:23)
[2019-04-01] MEDS: THIAMINE HCL 100 MG TABLET (FP) PO SCH (22:23)
[2019-04-01] MEDS: MELATONIN 5 MG TABLETS PO PRN (22:24)
[2019-04-02] MEDS: chlordiazePOXIDE HCL 25 MG CAPSULE PO SCH ×4 (06:01→22:22)
[2019-04-02] MEDS ORDERED: COLLOIDAL OATMEAL 1 BAR EACH TP PRN (09:34)
--- NOTE | 2019-04-02 09:42 | CONSULT ---
[facility] Psychiatric Consult - Data Date of interview: 04/02/19 Admission source: [facility] Identifying data: Patient is a 48 year old female, without children, unemployed, domiciled, and is financially supported by family and . This is one of multiple admissions for patient. Patient admitted to for alcohol and cocaine dependence. Substance Abuse History: Smoking Cessation. Smoking history: Current every day smoker. Have you smoked in the past 12 months: Yes. Aproximately how many cigarettes per day: 10. Hx Chewing Tobacco Use: No. Initiated information on smoking cessation: Yes. 'Breaking Loose' booklet given: 04/01/19. - Substance & Tx. History. Hx Alcohol Use: Yes. Hx Substance Use: Yes. Substance Use Type : Alcohol, Cocaine. Hx Substance Use Treatment: Yes ([facility] 01/30/19 to 02/04/19) . - Substances abused. Alcohol. Substance route: Oral. Frequency: Daily. Amount used: 1 gallon vodka & (6) 24OZ BEER. Age of first use: 22. Date of last use: 04/01/19. Crack. Substance route: Smoking. Frequency: Daily. Amount used: $100. Age of first use: 35. Date of last use: 03/31/19 Medical History: L foot sx in 2016 from dog bite Psychiatric History: Patient's first psychiatric contact was at 13 years of age after her parents took her to see a psychiatrist in [place] due to her mood instability. She reports being prescribed zoloft and was offered psychotherapy. Diagnosis unknown. Ms. Inman saw the psychiatrist until the age of 22 and never seeked psychiatric care again. Patient denies history of psychiatric hospitalizations and suicide attempt. At present patient reports feeling sad and anxious. Physical/Sexual Abuse/Trauma History: denies. Mental Status Exam - Mental Status Exam Alert and Oriented to: Time, Place, Person Cognitive Function: Good Patient Appearance: Well Groomed Mood: Sad Affect: Appropriate Patient Behavior: Cooperative Speech Pattern: Appropriate Voice Loudness: Normal Thought Process: Goal Oriented Thought Disorder: Not Present Hallucinations: Denies Suicidal Ideation: Denies Homicidal Ideation: Denies Insight/Judgement: Poor Sleep: Fair Appetite: Fair Muscle strength/Tone: Normal Gait/Station: Normal Psychiatric Findings - Problem List ([place] 1, 2,3) (1) Substance-induced anxiety disorder Current Visit: Yes Status: Acute (2) Alcohol dependence with uncomplicated withdrawal Current Visit: Yes Status: Acute (3) Cocaine dependence Current Visit: Yes Status: Chronic - Initial Treatment Plan Initial Treatment Plan: Psychoeducation provided. Detofication in progress. Will order vistaril 50mg q6h. Benefits and side effects discussed. Verbal consent given.
[2019-04-02] MEDS: hydrOXYzine PAMOATE 25 MG CAPSULE (FP) PO PRN ×2 (09:46→17:07)
[2019-04-02] MEDS: PRENATAL VITAMINS W/ FOLIC ACID TABLET (FP) PO SCH (10:27)
[2019-04-02] MEDS: NICOTINE 21 MG/24 HOURS TOPICAL PATCH TD SCH (10:28)
[2019-04-02 10:53] LABS: ALBUMIN 2.8 g/dl (3.4-5.0); BILIRUBIN,TOTAL 0.8 mg/dL (0.2-1); BLOOD UREA NITROGEN 4.6 mg/dL (7-18); CALCIUM 8.4 mg/dL (8.5-10.1); CREATININE 0.7 mg/dL (0.55-1.3); POTASSIUM 3.2 mmol/L (3.5-5.1); TOT PROT 6.3 g/dl (6.4-8.2)
[2019-04-02 11:06] LABS: HEMATOCRIT 34.7 % (32.4-45.2); HEMOGLOBIN 11.8 GM/dL (10.7-15.3); MCH 32.2 pg (25.7-33.7); MCHC 33.9 g/dl (32.0-36.0); MEAN PLT VOLUME 7.9 fl (7.5-11.1); PLATELET COUNT 357 K/MM3 (134-434); RBC 3.66 M/mm3 (3.60-5.2); RDW 13.8 % (11.6-15.6); WHITE BLOOD COUNT 2.9 K/mm3 (4.0-10.0)
--- NOTE | 2019-04-02 13:15 | PN ---
S CIWA - CIWA Score Nausea/Vomitin-Mild Nausea/No Vomiting Muscle Tremors: 3 Anxiety: 2 Agitation: 4-Moderately Restless Paroxysmal Sweats: 1-Minimal Palms Moist Orientation: 0-Oriented Tacttile Disturbances: 0-None Auditory Disturbances: 1-Very Mild Visual Disturbances: 1-Very Mild Sensitivity Headache: 0-None Present CIWA-Ar Total Score: 13 BHS Progress Note (SOAP) Subjective: doing well with librium detox regimen c/o dry skin aveen soap ordered c/o psoriasis triamncinolone ointment Objective: 04/02/19 13:16 Vital Signs Temperature 97.5 F L 04/02/19 09:50 Pulse Rate 88 04/02/19 09:50 Respiratory Rate 18 04/02/19 09:50 Blood Pressure 143/90 04/02/19 09:50 O2 Sat by Pulse Oximetry (%) Laboratory Last Values WBC 2.9 K/mm3 (4.0-10.0) L 04/02/19 07:30 RBC 3.66 M/mm3 (3.60-5.2) 04/02/19 07:30 Hgb 11.8 GM/dL (10.7-15.3) 04/02/19 07:30 Hct 34.7 % (32.4-45.2) 04/02/19 07:30 MCV 95.0 fl (80-96) 04/02/19 07:30 MCH 32.2 pg (25.7-33.7) 04/02/19 07:30 MCHC 33.9 g/dl (32.0-36.0) 04/02/19 07:30 RDW 13.8 % (11.6-15.6) 04/02/19 07:30 Plt Count 357 K/MM3 (134-434) D 04/02/19 07:30 MPV 7.9 fl (7.5-11.1) 04/02/19 07:30 Sodium 137 mmol/L (136-145) 04/02/19 07:30 Potassium 3.2 mmol/L (3.5-5.1) L 04/02/19 07:30 Chloride 104 mmol/L (98-107) 04/02/19 07:30 Carbon Dioxide 26 mmol/L (21-32) 04/02/19 07:30 Anion Gap 7 MMOL/L (8-16) L 04/02/19 07:30 BUN 4.6 mg/dL (7-18) L 04/02/19 07:30 Creatinine 0.7 mg/dL (0.55-1.3) 04/02/19 07:30 Est GFR (CKD-EPI)AfAm 118.74 04/02/19 07:30 Est GFR (CKD-EPI)NonAf 102.45 04/02/19 07:30 Random Glucose 105 mg/dL (74-106) 04/02/19 07:30 Calcium 8.4 mg/dL (8.5-10.1) L 04/02/19 07:30 Total Bilirubin 0.8 mg/dL (0.2-1) 04/02/19 07:30 AST 20 U/L (15-37) 04/02/19 07:30 ALT 17 U/L (13-61) 04/02/19 07:30 Alkaline Phosphatase 73 U/L (45-117) 04/02/19 07:30 Total Protein 6.3 g/dl (6.4-8.2) L 04/02/19 07:30 Albumin 2.8 g/dl (3.4-5.0) L 04/02/19 07:30 RPR Titer Nonreactive (NONREACTIVE) 04/02/19 07:30 04/02/19 13:17 low K+ low wbc repeat K+ 04/02/19 13:19 Assessment: 04/02/19 13:19 alcohol withdrawal sx Plan: continue librium detox regimen
[2019-04-02] MEDS: POTASSIUM CHLORIDE TABS 20 MEQ TABLET.ER (FP) PO SCH ×2 (14:15→22:23)
[2019-04-02] MEDS: TRIAMCINOLONE ACET 0.1% OINT 15 GM TUBE TP SCH ×4 (14:15→22:23)
[2019-04-02] MEDS: hydrOXYzine PAMOATE 50 MG CAPSULE (FP) PO PRN (14:15)
[2019-04-02] MEDS: METHOCARBAMOL 500 MG TABLET PO PRN (14:15)
[2019-04-02] MEDS: CLOTRIMAZOLE 1% CREAM 15 GM TUBE TP SCH ×2 (14:16→22:23)
[2019-04-02] MEDS: THIAMINE HCL 100 MG TABLET (FP) PO SCH (22:22)
[2019-04-02] MEDS: MELATONIN 5 MG TABLETS PO PRN (22:24)
[2019-04-03] MEDS: chlordiazePOXIDE HCL 25 MG CAPSULE PO SCH ×4 (05:40→22:37)
[2019-04-03] MEDS: hydrOXYzine PAMOATE 50 MG CAPSULE (FP) PO PRN ×3 (05:43→22:40)
[2019-04-03] MEDS: METHOCARBAMOL 500 MG TABLET PO PRN ×2 (05:43→14:38)
[2019-04-03] MEDS: PRENATAL VITAMINS W/ FOLIC ACID TABLET (FP) PO SCH (10:18)
[2019-04-03] MEDS: POTASSIUM CHLORIDE TABS 20 MEQ TABLET.ER (FP) PO SCH ×2 (10:18→22:37)
[2019-04-03] MEDS: TRIAMCINOLONE ACET 0.1% OINT 15 GM TUBE TP SCH ×4 (10:19→22:37)
[2019-04-03] MEDS: NICOTINE 21 MG/24 HOURS TOPICAL PATCH TD SCH (10:19)
[2019-04-03] MEDS: CLOTRIMAZOLE 1% CREAM 15 GM TUBE TP SCH ×2 (10:19→22:38)
--- NOTE | 2019-04-03 12:20 | PN ---
[facility] CIWA - CIWA Score Nausea/Vomitin-Mild Nausea/No Vomiting Muscle Tremors: 2 Anxiety: 3 Agitation: 1-Slight > Activity Paroxysmal Sweats: 2 Orientation: 0-Oriented Tacttile Disturbances: 1-Very Mild Itch/Numbness Auditory Disturbances: 0-None Visual Disturbances: 0-None Headache: 0-None Present CIWA-Ar Total Score: 10 S Progress Note (SOAP) Subjective: doing well with librium detox regiment sitting on the edge of the bed eating breakfast good eye contact speech clearly Objective: 04/03/19 12:20 Vital Signs Temperature 97.9 F 04/03/19 09:06 Pulse Rate 68 04/03/19 09:06 Respiratory Rate 18 04/03/19 09:06 Blood Pressure 117/84 04/03/19 09:06 O2 Sat by Pulse Oximetry (%) Laboratory Last Values WBC 2.9 K/mm3 (4.0-10.0) L 04/02/19 07:30 RBC 3.66 M/mm3 (3.60-5.2) 04/02/19 07:30 Hgb 11.8 GM/dL (10.7-15.3) 04/02/19 07:30 Hct 34.7 % (32.4-45.2) 04/02/19 07:30 MCV 95.0 fl (80-96) 04/02/19 07:30 MCH 32.2 pg (25.7-33.7) 04/02/19 07:30 MCHC 33.9 g/dl (32.0-36.0) 04/02/19 07:30 RDW 13.8 % (11.6-15.6) 04/02/19 07:30 Plt Count 357 K/MM3 (134-434) D 04/02/19 07:30 MPV 7.9 fl (7.5-11.1) 04/02/19 07:30 Sodium 137 mmol/L (136-145) 04/02/19 07:30 Potassium 3.2 mmol/L (3.5-5.1) L 04/02/19 07:30 Chloride 104 mmol/L (98-107) 04/02/19 07:30 Carbon Dioxide 26 mmol/L (21-32) 04/02/19 07:30 Anion Gap 7 MMOL/L (8-16) L 04/02/19 07:30 BUN 4.6 mg/dL (7-18) L 04/02/19 07:30 Creatinine 0.7 mg/dL (0.55-1.3) 04/02/19 07:30 Est GFR (CKD-EPI)AfAm 118.74 04/02/19 07:30 Est GFR (CKD-EPI)NonAf 102.45 04/02/19 07:30 Random Glucose 105 mg/dL (74-106) 04/02/19 07:30 Calcium 8.4 mg/dL (8.5-10.1) L 04/02/19 07:30 Total Bilirubin 0.8 mg/dL (0.2-1) 04/02/19 07:30 AST 20 U/L (15-37) 04/02/19 07:30 ALT 17 U/L (13-61) 04/02/19 07:30 Alkaline Phosphatase 73 U/L (45-117) 04/02/19 07:30 Total Protein 6.3 g/dl (6.4-8.2) L 04/02/19 07:30 Albumin 2.8 g/dl (3.4-5.0) L 04/02/19 07:30 POC Urine HCG, Qual Negative 04/01/19 16:05 RPR Titer Nonreactive (NONREACTIVE) 04/02/19 07:30 lab noted 04/03/19 12:20 low K+ continue K+ supplement 04/03/19 12:21 Assessment: 04/03/19 12:21 alcohol withdrawal sx Plan: continue librium detox regimen
[2019-04-03 17:12] LABS: URINE APPEARANCE CLEAR; URINE BILIRUBIN NEGATIVE (NEGATIVE); URINE COLOR YELLOW; URINE GLUCOSE (UA) NEGATIVE (NEGATIVE); URINE KETONE NEGATIVE (NEGATIVE); URINE LEUK ESTERASE NEGATIVE (NEGATIVE); URINE NITRITE NEGATIVE (NEGATIVE); URINE PROTEIN NEGATIVE (NEGATIVE)
[2019-04-03] MEDS: hydrOXYzine PAMOATE 25 MG CAPSULE (FP) PO PRN (17:15)
[2019-04-03] MEDS: THIAMINE HCL 100 MG TABLET (FP) PO SCH (22:38)
[2019-04-04] MEDS ORDERED: chlordiazePOXIDE HCL 10 MG CAPSULE PO PRN
[2019-04-04] MEDS: chlordiazePOXIDE HCL 10 MG CAPSULE PO SCH ×4 (05:58→22:10)
[2019-04-04] MEDS: hydrOXYzine PAMOATE 25 MG CAPSULE (FP) PO PRN (05:59)
[2019-04-04] MEDS: METHOCARBAMOL 500 MG TABLET PO PRN ×2 (10:40→20:24)
[2019-04-04] MEDS: NICOTINE 21 MG/24 HOURS TOPICAL PATCH TD SCH (10:40)
[2019-04-04] MEDS: TRIAMCINOLONE ACET 0.1% OINT 15 GM TUBE TP SCH ×4 (10:43→22:12)
[2019-04-04] MEDS: CLOTRIMAZOLE 1% CREAM 15 GM TUBE TP SCH ×2 (10:43→22:12)
[2019-04-04] MEDS: POTASSIUM CHLORIDE TABS 20 MEQ TABLET.ER (FP) PO SCH ×2 (10:43→22:10)
[2019-04-04] MEDS: PRENATAL VITAMINS W/ FOLIC ACID TABLET (FP) PO SCH (10:44)
[2019-04-04] MEDS: hydrOXYzine PAMOATE 50 MG CAPSULE (FP) PO PRN ×2 (13:49→20:23)
--- NOTE | 2019-04-04 16:35 | PN ---
[facility] CIWA - CIWA Score Nausea/Vomitin-No Nausea/No Vomiting Muscle Tremors: None Anxiety: 4-Mod. Anxious/Guarded Agitation: 3 Paroxysmal Sweats: 2 Orientation: 2-Disoriented Date<2 days Tacttile Disturbances: 0-None Auditory Disturbances: 0-None Visual Disturbances: 0-None Headache: 0-None Present CIWA-Ar Total Score: 11 S Progress Note (SOAP) Subjective: Anxious, Restless Objective: PATIENT A & O X 2 (UNCERTAIN ABOUT CURRENT DAY/ DATE). PATIENT OBSERVED AMBULATING ON DETOX UNIT UNASSISTED. IN NO ACUTE DISTRESS. 04/04/19 16:37 Vital Signs Temperature 98.1 F 04/04/19 09:30 Pulse Rate 81 04/04/19 09:30 Respiratory Rate 18 04/04/19 09:30 Blood Pressure 109/71 04/04/19 09:30 O2 Sat by Pulse Oximetry (%) Laboratory Tests 04/01/19 04/02/19 04/02/19 16:05 07:30 07:30 WBC 2.9 L RBC 3.66 Hgb 11.8 Hct 34.7 MCV 95.0 MCH 32.2 MCHC 33.9 RDW 13.8 Plt Count 357 D MPV 7.9 Sodium 137 Potassium 3.2 L Chloride 104 Carbon Dioxide 26 Anion Gap 7 L BUN 4.6 L Creatinine 0.7 Est GFR (CKD-EPI)AfAm 118.74 Est GFR (CKD-EPI)NonAf 102.45 Random Glucose 105 Calcium 8.4 L Total Bilirubin 0.8 AST 20 ALT 17 Alkaline Phosphatase 73 Total Protein 6.3 L Albumin 2.8 L Urine Color Urine Appearance Urine pH Ur Specific [place] Urine Protein Urine Glucose (UA) Urine Ketones Urine Blood Urine Nitrite Urine Bilirubin Urine Urobilinogen Ur Leukocyte Esterase POC Urine HCG, Qual Negative RPR Titer 04/02/19 04/03/19 07:30 14:36 WBC RBC Hgb Hct MCV MCH MCHC RDW Plt Count MPV Sodium Potassium Chloride Carbon Dioxide Anion Gap BUN Creatinine Est GFR (CKD-EPI)AfAm Est GFR (CKD-EPI)NonAf Random Glucose Calcium Total Bilirubin AST ALT Alkaline Phosphatase Total Protein Albumin Urine Color Yellow Urine Appearance Clear Urine pH 8.0 Ur Specific [place] 1.016 Urine Protein Negative Urine Glucose (UA) Negative Urine Ketones Negative Urine Blood Negative Urine Nitrite Negative Urine Bilirubin Negative Urine Urobilinogen 1.0 Ur Leukocyte Esterase Negative POC Urine HCG, Qual RPR Titer Nonreactive LABS NOTED. Assessment: 04/04/19 16:37 WITHDRAWAL SYMPTOMS. LEUKOPENIA. HYPOKALEMIA. Plan: CONTINUE DETOX. CONTINUE K-DUR PO FIR LOW K LEVEL NOTED ON DETOX ADMISSION LABORATORY ASSESSMENT. REPEAT K LEVEL ORDERED FOR TOMORROW AM.
[2019-04-04] MEDS: MELATONIN 5 MG TABLETS PO PRN (22:10)
[2019-04-04] MEDS: THIAMINE HCL 100 MG TABLET (FP) PO SCH (22:10)
[2019-04-05] MEDS: chlordiazePOXIDE HCL 10 MG CAPSULE PO SCH ×2 (05:30→17:32)
[2019-04-05] MEDS: hydrOXYzine PAMOATE 25 MG CAPSULE (FP) PO PRN (05:31)
[2019-04-05] MEDS: METHOCARBAMOL 500 MG TABLET PO PRN ×3 (05:31→22:09)
[2019-04-05] MEDS: PRENATAL VITAMINS W/ FOLIC ACID TABLET (FP) PO SCH (10:26)
[2019-04-05] MEDS: hydrOXYzine PAMOATE 50 MG CAPSULE (FP) PO PRN ×3 (10:26→22:09)
[2019-04-05] MEDS: TRIAMCINOLONE ACET 0.1% OINT 15 GM TUBE TP SCH ×4 (10:27→22:11)
[2019-04-05] MEDS: CLOTRIMAZOLE 1% CREAM 15 GM TUBE TP SCH ×2 (10:28→22:10)
[2019-04-05] MEDS: POTASSIUM CHLORIDE TABS 20 MEQ TABLET.ER (FP) PO SCH (10:28)
[2019-04-05] MEDS: NICOTINE 21 MG/24 HOURS TOPICAL PATCH TD SCH (10:30)
--- NOTE | 2019-04-05 15:08 | PN ---
S CIWA - CIWA Score Nausea/Vomitin-No Nausea/No Vomiting Muscle Tremors: None Anxiety: 4-Mod. Anxious/Guarded Agitation: 3 Paroxysmal Sweats: No Perspiration Orientation: 0-Oriented Tacttile Disturbances: 0-None Auditory Disturbances: 0-None Visual Disturbances: 0-None Headache: 0-None Present CIWA-Ar Total Score: 7 BHS Progress Note (SOAP) Subjective: Anxious, Restless. Patient reports That Current withdrawal Detox Symptoms in General Are Subsiding in Severity and that she feels well overall at this time. Objective: PATIENT A & O X 3, OBSERVED AMBULATING ON DETOX UNIT UNASSISTED. IN NO ACUTE DISTRESS. 04/05/19 15:05 Vital Signs Temperature 98.5 F 04/05/19 13:11 Pulse Rate 80 04/05/19 13:11 Respiratory Rate 18 04/05/19 13:11 Blood Pressure 115/72 04/05/19 13:11 O2 Sat by Pulse Oximetry (%) Laboratory Tests 04/01/19 04/02/19 04/02/19 16:05 07:30 07:30 WBC 2.9 L RBC 3.66 Hgb 11.8 Hct 34.7 MCV 95.0 MCH 32.2 MCHC 33.9 RDW 13.8 Plt Count 357 D MPV 7.9 Sodium 137 Potassium 3.2 L Chloride 104 Carbon Dioxide 26 Anion Gap 7 L BUN 4.6 L Creatinine 0.7 Est GFR (CKD-EPI)AfAm 118.74 Est GFR (CKD-EPI)NonAf 102.45 Random Glucose 105 Calcium 8.4 L Total Bilirubin 0.8 AST 20 ALT 17 Alkaline Phosphatase 73 Total Protein 6.3 L Albumin 2.8 L Urine Color Urine Appearance Urine pH Ur Specific [place] Urine Protein Urine Glucose (UA) Urine Ketones Urine Blood Urine Nitrite Urine Bilirubin Urine Urobilinogen Ur Leukocyte Esterase POC Urine HCG, Qual Negative RPR Titer 04/02/19 04/03/19 04/05/19 07:30 14:36 08:00 WBC RBC Hgb Hct MCV MCH MCHC RDW Plt Count MPV Sodium Potassium 4.4 Chloride Carbon Dioxide Anion Gap BUN Creatinine Est GFR (CKD-EPI)AfAm Est GFR (CKD-EPI)NonAf Random Glucose Calcium Total Bilirubin AST ALT Alkaline Phosphatase Total Protein Albumin Urine Color Yellow Urine Appearance Clear Urine pH 8.0 Ur Specific [place] 1.016 Urine Protein Negative Urine Glucose (UA) Negative Urine Ketones Negative Urine Blood Negative Urine Nitrite Negative Urine Bilirubin Negative Urine Urobilinogen 1.0 Ur Leukocyte Esterase Negative POC Urine HCG, Qual RPR Titer Nonreactive LABS NOTED. PATIENT HAS HAD LOW PLATELET WBC LEVELS ON PREVIOUS ADMISSIONS. RESULT OF REPEAT K LEVEL (4.4)NOTED. LEVEL NOW NOTED TO BE WITHIN NORMAL RANGE. WILL D/C K-DUR PO. 04/05/19 15:06 Assessment: 04/05/19 15:06 WITHDRAWAL SYMPTOMS. LEUKOPENIA. Plan: CONTINUE DETOX. PATIENT SCHEDULED FOR D/C FROM DETOX UNIT TOMORROW.
[2019-04-05] MEDS: MELATONIN 5 MG TABLETS PO PRN (22:09)
[2019-04-05] MEDS: THIAMINE HCL 100 MG TABLET (FP) PO SCH (22:09)
[2019-04-06] MEDS ORDERED: chlordiazePOXIDE HCL 10 MG CAPSULE PO ONE (05:00)
[2019-04-06] MEDS: hydrOXYzine PAMOATE 50 MG CAPSULE (FP) PO PRN (06:03)
[2019-04-06] MEDS: METHOCARBAMOL 500 MG TABLET PO PRN (06:03)
[2019-04-06 06:38] VITALS: BP 107/68; PULSE 64; TEMP 98.6
--- NOTE | 2019-04-06 09:19 | DS ---
[facility] Detox Discharge Summary Admission Date: 04/01/19 Discharge Date: 04/06/19 - History Present History: Alcohol Dependence Additional Comments: Patient medically stable, successfully completed detox. Patient to follow up with primary care provider within 1-2 weeks. Seek medical attention if worsening symptoms are present. Follow up for your after care at [facility]. Pertinent Past History: ETOH dependence cocaine dependence eczema nicotine dependence - Physical Exam Results Vital Signs: Vital Signs Temperature 98.6 F 04/06/19 06:37 Pulse Rate 64 04/06/19 06:37 Respiratory Rate 18 04/06/19 06:37 Blood Pressure 107/68 04/06/19 06:37 O2 Sat by Pulse Oximetry (%) Pertinent Admission Physical Exam Findings: Vital Signs Temperature 98.6 F 04/06/19 06:37 Pulse Rate 64 04/06/19 06:37 Respiratory Rate 18 04/06/19 06:37 Blood Pressure 107/68 04/06/19 06:37 O2 Sat by Pulse Oximetry (%) Laboratory Last Values WBC 2.9 K/mm3 (4.0-10.0) L 04/02/19 07:30 RBC 3.66 M/mm3 (3.60-5.2) 04/02/19 07:30 Hgb 11.8 GM/dL (10.7-15.3) 04/02/19 07:30 Hct 34.7 % (32.4-45.2) 04/02/19 07:30 MCV 95.0 fl (80-96) 04/02/19 07:30 MCH 32.2 pg (25.7-33.7) 04/02/19 07:30 MCHC 33.9 g/dl (32.0-36.0) 04/02/19 07:30 RDW 13.8 % (11.6-15.6) 04/02/19 07:30 Plt Count 357 K/MM3 (134-434) D 04/02/19 07:30 MPV 7.9 fl (7.5-11.1) 04/02/19 07:30 Sodium 137 mmol/L (136-145) 04/02/19 07:30 Potassium 4.4 mmol/L (3.5-5.1) 04/05/19 08:00 Chloride 104 mmol/L (98-107) 04/02/19 07:30 Carbon Dioxide 26 mmol/L (21-32) 04/02/19 07:30 Anion Gap 7 MMOL/L (8-16) L 04/02/19 07:30 BUN 4.6 mg/dL (7-18) L 04/02/19 07:30 Creatinine 0.7 mg/dL (0.55-1.3) 04/02/19 07:30 Est GFR (CKD-EPI)AfAm 118.74 04/02/19 07:30 Est GFR (CKD-EPI)NonAf 102.45 04/02/19 07:30 Random Glucose 105 mg/dL (74-106) 04/02/19 07:30 Calcium 8.4 mg/dL (8.5-10.1) L 04/02/19 07:30 Total Bilirubin 0.8 mg/dL (0.2-1) 04/02/19 07:30 AST 20 U/L (15-37) 04/02/19 07:30 ALT 17 U/L (13-61) 04/02/19 07:30 Alkaline Phosphatase 73 U/L (45-117) 04/02/19 07:30 Total Protein 6.3 g/dl (6.4-8.2) L 04/02/19 07:30 Albumin 2.8 g/dl (3.4-5.0) L 04/02/19 07:30 Urine Color Yellow 04/03/19 14:36 Urine Appearance Clear 04/03/19 14:36 Urine pH 8.0 (5.0-8.0) 04/03/19 14:36 Ur Specific [place] 1.016 (1.010-1.035) 04/03/19 14:36 Urine Protein Negative (NEGATIVE) 04/03/19 14:36 Urine Glucose (UA) Negative (NEGATIVE) 04/03/19 14:36 Urine Ketones Negative (NEGATIVE) 04/03/19 14:36 Urine Blood Negative (NEGATIVE) 04/03/19 14:36 Urine Nitrite Negative (NEGATIVE) 04/03/19 14:36 Urine Bilirubin Negative (NEGATIVE) 04/03/19 14:36 Urine Urobilinogen 1.0 mg/dL (0.2-1.0) 04/03/19 14:36 Ur Leukocyte Esterase Negative (NEGATIVE) 04/03/19 14:36 POC Urine HCG, Qual Negative 04/01/19 16:05 RPR Titer Nonreactive (NONREACTIVE) 04/02/19 07:30 Aox3 no acute distress EENT WNL no JVD full ROM no gait abnormality - Treatment Hospital Course: Detox Protocol Followed, Detoxed Safely, Responded well, Discharged Condition Good, Rehab Referral Accepted Patient has Accepted a Rehab Referral to: [facility] - Medication Discharge Medications: Ambulatory Orders NK [No Known Home Medication] 08/03/15 - Diagnosis (1) Alcohol dependence with uncomplicated withdrawal Status: Acute (2) Eczema Status: Chronic (3) Tinea pedis Status: Chronic Qualifiers: Laterality: bilateral Qualified Code(s): B35.3 - Tinea pedis (4) Cocaine dependence Status: Chronic (5) Nicotine dependence Status: Chronic Qualifiers: Nicotine product type: cigarettes Substance use status: uncomplicated Qualified Code(s): F17.210 - Nicotine dependence, cigarettes, uncomplicated (6) Psoriasis Status: Chronic - AMA Did Patient Leave Against Medical Advice: No
== END 2019-04-06 09:43 | disposition home or self-care (01) | DRG 774 ==
LOC: YASAS 11:50 → Y3N 16:51
PROVIDERS: ADMIT Surgery; ATTEND Surgery
PROC: HZ2ZZZZ Detoxification Services for Substance Abuse Treatment (ICD-10-PCS; principal; 2019-04-01)
DX: F10.230 Alcohol dependence with withdrawal, uncomplicated (principal); F14.20 Cocaine dependence, uncomplicated; F17.210 Nicotine dependence, cigarettes, uncomplicated; F19.280 Other psychoactive substance dependence with psychoactive substance-induced anxiety disorder; F41.9 Anxiety disorder, unspecified; F32.9 Major depressive disorder, single episode, unspecified; E87.6 Hypokalemia; D72.819 Decreased white blood cell count, unspecified; L30.9 Dermatitis, unspecified; L40.9 Psoriasis, unspecified; B35.3 Tinea pedis; R63.4 Abnormal weight loss; G47.00 Insomnia, unspecified; Z91.19 Patient's noncompliance with other medical treatment and regimen; Z59.0 Homelessness
CPT/HCPCS: 36415; 80053; 81003; 81025; 84132; 85027; 86593

== ENCOUNTER 2019-05-29 10:10 | Inpatient (IN) | payer OTHER ==
[2019-05-29 11:07] VITALS: BMI 27.3
--- NOTE | 2019-05-29 12:34 | HP ---
CIWA Score Nausea/Vomitin-Mild Nausea/No Vomiting Muscle Tremors: 4-Moderate,w/Arms Extend Anxiety: 3 Agitation: 4-Moderately Restless Paroxysmal Sweats: 1-Minimal Palms Moist Orientation: 0-Oriented Tacttile Disturbances: 0-None Auditory Disturbances: 0-None Visual Disturbances: 0-None Headache: 3-Moderate CIWA-Ar Total Score: 16 - Admission Criteria OASAS Guidelines: Admission for Medically Managed Detox: Requires at least one of the followin. CIWA greater than 12 2. Seizures within the past 24 hours 3. Delirium tremens within the past 24 hours 4. Hallucinations within the past 24 hours 5. Acute intervention needed for co occurring medical disorder 6. Acute intervention needed for co occurring psychiatric disorder 7. Severe withdrawal that cannot be handled at a lower level of care (continued vomiting, continued diarrhea, abnormal vital signs) requiring intravenous medication and/or fluids 8. Admitting History and Physical - Admission Chief Complaint: "I want to change, I want to get better, I want to stop drinking. I'm tired of doing this over and over." History of Present Illness: 48 year old black female with alcohol dependence with withdrawals. She drinks about 2 pints of vodka daily plus beer, her last drink was this morning. She has had blackouts in the past, last time 1 month or less ago. She smokes crack $100 daily, last smoked last night. She smokes ciggarettes 1/2 ppd daily since 17 years old. PMH: Psoriasis Psurg: Left foot surgery bit my a dog. Psych: None She is homeless and occasionally stays with family. She has support systems with family: sister, brother, etc. She has some legal issues pending from [employer], has court dates. - Past Medical History ...LMP: 03/06/19 - Smoking History Smoking history: Current every day smoker Have you smoked in the past 12 months: Yes Aproximately how many cigarettes per day: 10 - Alcohol/Substance Use Hx Alcohol Use: Yes Admission [facility] Allergies/Adverse Reactions: Allergies Allergy/AdvReac Type Severity Reaction Status Date / Time No Known Allergies Allergy Verified 05/29/19 11:00 Exam Limitations: No Limitations - Ebola screening Have you traveled outside of the country in the last 21 days: No Have you had contact with anyone from an Ebola affected area: No Have you been sick,other than usual withdrawal symptoms: No Do you have a fever: No - Review of Systems Constitutional: No Symptoms Reported, Diaphoresis, Night Sweats, Unintentional Wgt. Loss EENT: reports: No Symptoms Reported Respiratory: reports: No Symptoms reported Cardiac: reports: No Symptoms Reported GI: reports: Nausea, Poor Appetite, Abdominal cramping : reports: No Symptoms Reported Musculoskeletal: reports: No Symptoms Reported Integumentary: reports: No Symptoms Reported Neuro: reports: Headache Endocrine: reports: No Symptoms Reported Hematology: reports: No Symptoms Reported Psychiatric: reports: No Sypmtoms Reported, Judgement Intact, Orientated x3, Anxious Other Systems: Reviewed and Negative Patient History - Patient Medical History Hx Anemia: No Hx Asthma: No Hx Chronic Obstructive Pulmonary Disease (COPD): No Hx Cancer: No Hx Cardiac Disorders: No Hx Congestive Heart Failure: No Hx Hypertension: No Hx Hypercholesterolemia: No Hx Pacemaker: No HX Cerebrovascular Accident: No Hx Seizures: No Hx Dementia: No Hx Diabetes: No Hx Gastrointestinal Disorders: No Hx Liver Disease: No Hx Genitourinary Disorders: No Hx Sexually Transmitted Disorders: No Hx Renal Disease (ESRD): No Hx Thyroid Disease: No Hx Human Immunodeficiency Virus (HIV): No (last 12/21 negative) Hx Hepatitis C: No (last tested 04/18) Hx Depression: Yes (anxiety) Hx Suicide Attempt: No Hx Bipolar Disorder: No Hx Schizophrenia: No - Patient Surgical History Past Surgical History: No Hx Neurologic Surgery: No Hx Cataract Extraction: No Hx Cardiac Surgery: No Hx Lung Surgery: No Hx Breast Surgery: No Hx Breast Biopsy: No Hx Abdominal Surgery: No Hx Appendectomy: No Hx Cholecystectomy: No Hx Genitourinary Surgery: No Hx Section: No Hx Orthopedic Surgery: No Other Surgical History: L foot sx in 2016 from dog bite. Anesthesia Reaction: No - PPD History Previous Implant?: Yes Documented Results: Negative w/proof Implanted On Prior R Admission?: Yes Date: 12/15/18 Results: 0 mm PPD to be Administered?: No - Reproductive History Last Menstrual Period: 03/06/19 - Smoking Cessation Smoking history: Current every day smoker Have you smoked in the past 12 months: Yes Aproximately how many cigarettes per day: 10 Hx Chewing Tobacco Use: No Initiated information on smoking cessation: Yes 'Breaking Loose' booklet given: 05/29/19 - Substances abused Alcohol Substance route: Oral Frequency: Daily Amount used: 2 pints of vodka & (10) 24OZ BEER Age of first use: 22 Date of last use: 05/29/19 Crack Substance route: Smoking Frequency: Daily Amount used: $100 Age of first use: 35 Date of last use: 05/29/19 Admission Physical Exam [facility] - Vital Signs Vital Signs: Vital Signs - 24 hr 05/29/19 11:00 Temperature 99.3 F Pulse Rate 111 H Respiratory 18 Rate Blood Pressure 150/87 - Physical General Appearance: Yes: Mild Distress, Anxious HEENTM: Yes: EOMI, Hearing grossly Normal, Normal ENT Inspection, Normocephalic , Normal Voice, CYNDI, Pharynx Normal, Tm's normal Respiratory: Yes: Chest Non-Tender, Lungs Clear, Normal Breath Sounds, No Respiratory Distress, No Accessory Muscle Use Neck: Yes: No masses,lesions,Nodules, Supple, Trachea in good position Breast: Yes: Breast Exam Deferred Cardiology: Yes: Regular Rhythm, S1, S2, Tachycardia Abdominal: Yes: Non Tender, Soft, Protuberent Genitourinary: Yes: Within Normal Limits Back: Yes: Normal Inspection Musculoskeletal: Yes: full range of Motion, Gait Steady, Pelvis Stable Extremities: Yes: Within Normal Limits, Normal Capillary Refill, Normal Inspection, Non-Tender Neurological: Yes: personal lines account manager II-XII NML intact, Fully Oriented, Alert, Motor Strength 5/5, Normal Mood/Affect, Normal Response Integumentary: Yes: Normal Color, Warm Lymphatic: Yes: Within Normal Limits - Diagnostic (1) Alcohol dependence with uncomplicated withdrawal Current Visit: Yes Status: Acute (2) Anxiety and depression Current Visit: Yes Status: Acute (3) Insomnia Current Visit: Yes Status: Acute (4) Cocaine dependence Current Visit: Yes Status: Chronic (5) Nicotine dependence Current Visit: Yes Status: Chronic Qualifiers: Nicotine product type: cigarettes Substance use status: uncomplicated Qualified Code(s): F17.210 - Nicotine dependence, cigarettes, uncomplicated (6) Psoriasis Current Visit: Yes Status: Chronic Cleared for Admission [facility] - Detox or Rehab [facility] Level of Care: Medically Managed (ativan protocol) Claeared for Rehab Admission: No Screened but not Admitted - Documentation of Visit Screened but not Admitted: No Breathalyzer - Breathalyzer Breathalyzer: 0.032 Urine Drug Screen - Test Device Lot number: [id number] Expiration date: 12/02/20 - Control Is test valid?: Yes - Results Drug screen NEGATIVE: Yes Urine drug screen results: ITA-Cocaine, BZO-Benzodiazepines Inpatient Rehab Admission - Rehab Decision to Admit Inpatient rehab admission?: No
[2019-05-29] MEDS ORDERED: IBUPROFEN 400 MG TABLET (FP) PO PRN (12:40)
[2019-05-29] MEDS ORDERED: MELATONIN 5 MG TABLETS PO PRN (12:40)
[2019-05-29] MEDS ORDERED: MAG HYDROX/AL HYDROX/SIMETH 30 ML UNIT-DOSE CUP PO PRN (12:40)
[2019-05-29] MEDS ORDERED: ACETAMINOPHEN 325 MG TABLET (FP) PO PRN ×2 (12:40)
[2019-05-29] MEDS ORDERED: MAGNESIUM HYDROX 2400MG/30ML ORAL SUSPENSION 30 ML CUP PO PRN (12:40)
[2019-05-29] MEDS ORDERED: hydrOXYzine PAMOATE 25 MG CAPSULE (FP) PO PRN (12:40)
[2019-05-29] MEDS ORDERED: METHOCARBAMOL 500 MG TABLET PO PRN (12:40)
[2019-05-29] MEDS ORDERED: LORazepam 1 MG TABLET PO PRN (12:40)
[2019-05-29] MEDS ORDERED: BISMUTH SUBSALICYLATE 262 MG/15 ML BTL PO PRN (12:40)
[2019-05-29] MEDS ORDERED: MAGNESIUM CITRATE 300 ML BOTTLE PO PRN (12:40)
[2019-05-29] MEDS ORDERED: SUVOREXANT 10 MG TABLET PO PRN (13:15)
[2019-05-29] MEDS ORDERED: COLLOIDAL OATMEAL 1 BAR EACH TP PRN (13:15)
[2019-05-29 16:28] LABS: HEMOGLOBIN 11.8 GM/dL (10.7-15.3); MCH 31.1 pg (25.7-33.7); MCHC 33.6 g/dl (32.0-36.0); MEAN CELL VOLUME 92.6 fl (80-96); PLATELET COUNT 314 K/MM3 (134-434); RBC 3.78 M/mm3 (3.60-5.2); RDW 13.7 % (11.6-15.6); WHITE BLOOD COUNT 6.8 K/mm3 (4.0-10.0)
[2019-05-29 16:33] LABS: ALBUMIN 3.9 g/dl (3.4-5.0); BILIRUBIN,TOTAL 0.4 mg/dL (0.2-1); BLOOD UREA NITROGEN 6.8 mg/dL (7-18); CALCIUM 9.2 mg/dL (8.5-10.1); CREATININE 0.7 mg/dL (0.55-1.3); POTASSIUM 3.6 mmol/L (3.5-5.1)
[2019-05-29] MEDS: LORazepam 2 MG TABLET PO SCH ×2 (18:24→22:04)
[2019-05-29] MEDS: THIAMINE HCL 100 MG TABLET (FP) PO SCH (22:04)
[2019-05-29] MEDS: MENTHOL/PHENOL 1 EACH UD MM PRN (22:07)
[2019-05-29] MEDS: P-EPHED 60MG/TRIPROLIDI 2.5MG TABLET PO PRN (22:44)
[2019-05-29] MEDS: guaiFENesin 200 MG/10 ML 10 ML UNIT-DOSE CUPS PO PRN (22:44)
[2019-05-30] MEDS: LORazepam 2 MG TABLET PO SCH ×4 (06:15→22:15)
[2019-05-30] MEDS: P-EPHED 60MG/TRIPROLIDI 2.5MG TABLET PO PRN (06:15)
[2019-05-30] MEDS: MENTHOL/PHENOL 1 EACH UD MM PRN (06:16)
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
[2019-05-30] MEDS ORDERED: MELATONIN 5 MG TABLETS PO PRN (09:48)
--- NOTE | 2019-05-30 10:04 | PN ---
S CIWA - CIWA Score Nausea/Vomitin-No Nausea/No Vomiting Muscle Tremors: 2 Anxiety: 1-Mildly Anxious Agitation: 2 Paroxysmal Sweats: 2 Orientation: 0-Oriented Tacttile Disturbances: 0-None Auditory Disturbances: 0-None Visual Disturbances: 0-None Headache: 0-None Present CIWA-Ar Total Score: 7 BHS Progress Note (SOAP) Subjective: agitation irritable sweats psorisis Objective: 05/30/19 10:03 Vital Signs Temperature 98.1 F 05/30/19 09:23 Pulse Rate 97 H 05/30/19 09:23 Respiratory Rate 18 05/30/19 09:23 Blood Pressure 115/84 05/30/19 09:23 O2 Sat by Pulse Oximetry (%) Laboratory Tests 05/29/19 05/29/19 05/29/19 12:50 12:50 12:50 WBC 6.8 RBC 3.78 Hgb 11.8 Hct 35.0 MCV 92.6 MCH 31.1 MCHC 33.6 RDW 13.7 Plt Count 314 MPV 8.0 Sodium 137 Potassium 3.6 Chloride 106 Carbon Dioxide 23 Anion Gap 8 BUN 6.8 L Creatinine 0.7 Est GFR (CKD-EPI)AfAm 118.74 Est GFR (CKD-EPI)NonAf 102.45 Random Glucose 99 Calcium 9.2 Total Bilirubin 0.4 AST 17 ALT 18 Alkaline Phosphatase 77 Total Protein 8.0 Albumin 3.9 RPR Titer Nonreactive labs noted aaox3 ambulating no acute distress Assessment: 05/30/19 10:04 withdrawals Plan: continue detox increase fluids lidex cream ordered
[2019-05-30] MEDS: NICOTINE 14 MG/24 HOURS TOPICAL PATCH TD SCH (11:49)
[2019-05-30] MEDS: PRENATAL VITAMINS W/ FOLIC ACID TABLET (FP) PO SCH (11:49)
[2019-05-30] MEDS: FLUOCINONIDE 0.05% CREAM (15 GM TUBE) TP SCH ×4 (14:25→23:23)
[2019-05-30] MEDS: hydrOXYzine PAMOATE 50 MG CAPSULE (FP) PO PRN (17:56)
[2019-05-30] MEDS: guaiFENesin 200 MG/10 ML 10 ML UNIT-DOSE CUPS PO PRN (20:14)
[2019-05-30] MEDS: THIAMINE HCL 100 MG TABLET (FP) PO SCH (22:15)
[2019-05-31] MEDS: LORazepam 1 MG TABLET PO SCH ×4 (05:32→22:28)
[2019-05-31] MEDS: NICOTINE 14 MG/24 HOURS TOPICAL PATCH TD SCH (10:25)
[2019-05-31] MEDS: PRENATAL VITAMINS W/ FOLIC ACID TABLET (FP) PO SCH (10:26)
[2019-05-31] MEDS: FLUOCINONIDE 0.05% CREAM (15 GM TUBE) TP SCH ×4 (10:26→22:12)
[2019-05-31] MEDS: hydrOXYzine PAMOATE 50 MG CAPSULE (FP) PO PRN (10:29)
--- NOTE | 2019-05-31 12:01 | PN ---
BHS CIWA - CIWA Score Nausea/Vomitin-No Nausea/No Vomiting Muscle Tremors: 2 Anxiety: 1-Mildly Anxious Agitation: 1-Slight > Activity Paroxysmal Sweats: 1-Minimal Palms Moist Orientation: 0-Oriented Tacttile Disturbances: 0-None Auditory Disturbances: 0-None Visual Disturbances: 0-None Headache: 0-None Present CIWA-Ar Total Score: 5 BHS Progress Note (SOAP) Subjective: feeling better anxiety sweats agitation Objective: 05/31/19 12:00 Vital Signs Temperature 98.6 F 05/31/19 09:38 Pulse Rate 86 05/31/19 09:38 Respiratory Rate 16 05/31/19 09:38 Blood Pressure 105/64 05/31/19 09:38 O2 Sat by Pulse Oximetry (%) Laboratory Tests 05/29/19 05/29/19 05/29/19 12:50 12:50 12:50 WBC 6.8 RBC 3.78 Hgb 11.8 Hct 35.0 MCV 92.6 MCH 31.1 MCHC 33.6 RDW 13.7 Plt Count 314 MPV 8.0 Sodium 137 Potassium 3.6 Chloride 106 Carbon Dioxide 23 Anion Gap 8 BUN 6.8 L Creatinine 0.7 Est GFR (CKD-EPI)AfAm 118.74 Est GFR (CKD-EPI)NonAf 102.45 Random Glucose 99 Calcium 9.2 Total Bilirubin 0.4 AST 17 ALT 18 Alkaline Phosphatase 77 Total Protein 8.0 Albumin 3.9 POC Urine HCG, Qual RPR Titer Nonreactive 05/29/19 12:53 WBC RBC Hgb Hct MCV MCH MCHC RDW Plt Count MPV Sodium Potassium Chloride Carbon Dioxide Anion Gap BUN Creatinine Est GFR (CKD-EPI)AfAm Est GFR (CKD-EPI)NonAf Random Glucose Calcium Total Bilirubin AST ALT Alkaline Phosphatase Total Protein Albumin POC Urine HCG, Qual Negative RPR Titer labs noted aaox3 ambulating no acute distress Assessment: 05/31/19 12:00 mild withdrawals Plan: continue detox increase fluids
[2019-05-31] MEDS: THIAMINE HCL 100 MG TABLET (FP) PO SCH (22:12)
[2019-06-01] MEDS ORDERED: LORazepam 0.5 MG TABLET PO PRN
[2019-06-01] MEDS ORDERED: LORazepam 0.5 MG TABLET PO SCH (05:00)
[2019-06-01 06:20] VITALS: BP 115/53; PULSE 92; TEMP 98.2
[2019-06-01] MEDS: P-EPHED 60MG/TRIPROLIDI 2.5MG TABLET PO PRN (07:51)
[2019-06-01] MEDS: MENTHOL/PHENOL 1 EACH UD MM PRN (07:53)
--- NOTE | 2019-06-01 09:05 | DS ---
[facility] Detox Discharge Summary Admission Date: 05/29/19 Discharge Date: 06/01/19 - History Present History: Alcohol Dependence, Cocaine Dependence - Physical Exam Results Vital Signs: Vital Signs Temperature 98.2 F 06/01/19 06:20 Pulse Rate 92 H 06/01/19 06:20 Respiratory Rate 18 06/01/19 06:20 Blood Pressure 115/53 L 06/01/19 06:20 O2 Sat by Pulse Oximetry (%) Pertinent Admission Physical Exam Findings: pt arrived in withdrawals Vital Signs Temperature 98.2 F 06/01/19 06:20 Pulse Rate 92 H 06/01/19 06:20 Respiratory Rate 18 06/01/19 06:20 Blood Pressure 115/53 L 06/01/19 06:20 O2 Sat by Pulse Oximetry (%) Laboratory Tests 05/29/19 05/29/19 05/29/19 12:50 12:50 12:50 WBC 6.8 RBC 3.78 Hgb 11.8 Hct 35.0 MCV 92.6 MCH 31.1 MCHC 33.6 RDW 13.7 Plt Count 314 MPV 8.0 Sodium 137 Potassium 3.6 Chloride 106 Carbon Dioxide 23 Anion Gap 8 BUN 6.8 L Creatinine 0.7 Est GFR (CKD-EPI)AfAm 118.74 Est GFR (CKD-EPI)NonAf 102.45 Random Glucose 99 Calcium 9.2 Total Bilirubin 0.4 AST 17 ALT 18 Alkaline Phosphatase 77 Total Protein 8.0 Albumin 3.9 POC Urine HCG, Qual RPR Titer Nonreactive 05/29/19 12:53 WBC RBC Hgb Hct MCV MCH MCHC RDW Plt Count MPV Sodium Potassium Chloride Carbon Dioxide Anion Gap BUN Creatinine Est GFR (CKD-EPI)AfAm Est GFR (CKD-EPI)NonAf Random Glucose Calcium Total Bilirubin AST ALT Alkaline Phosphatase Total Protein Albumin POC Urine HCG, Qual Negative RPR Titer aaox3 ambulating no acute distress - Treatment Hospital Course: Detox Protocol Followed, Detoxed Safely, Responded well, Discharged Condition Good, Rehab Referral Accepted Patient has Accepted a Rehab Referral to: pt declined rehab; referral provided - Medication Discharge Medications: Ambulatory Orders NK [No Known Home Medication] 08/03/15 - Diagnosis (1) Alcohol dependence with uncomplicated withdrawal Current Visit: Yes Status: Chronic (2) Anxiety and depression Current Visit: Yes Status: Acute (3) Cocaine dependence Current Visit: Yes Status: Chronic (4) Insomnia Current Visit: Yes Status: Acute (5) Substance-induced anxiety disorder Current Visit: Yes Status: Acute (6) Depressive disorder Current Visit: Yes Status: Chronic (7) Nicotine dependence Current Visit: Yes Status: Chronic Qualifiers: Nicotine product type: cigarettes Substance use status: uncomplicated Qualified Code(s): F17.210 - Nicotine dependence, cigarettes, uncomplicated (8) Psoriasis Current Visit: Yes Status: Chronic (9) MDD (major depressive disorder), single episode Current Visit: Yes Status: Ruled-out (10) Hypokalemia Current Visit: No Status: Acute (11) Substance-induced anxiety disorder Current Visit: No Status: Acute (12) Substance-induced sleep disorder Current Visit: No Status: Acute (13) Eczema Current Visit: No Status: Chronic Qualifiers: Eczema type: unspecified Qualified Code(s): L30.9 - Dermatitis, unspecified (14) Rosacea Current Visit: Yes Status: Chronic - AMA Did Patient Leave Against Medical Advice: No
[2019-06-02] MEDS ORDERED: LORazepam 0.5 MG TABLET PO ONE (05:00)
== END 2019-06-01 09:27 | disposition home or self-care (01) | DRG 774 ==
LOC: YASAS 10:10 → Y6N 13:25
PROVIDERS: ADMIT Allergy & Immunology; ATTEND Allergy & Immunology
PROC: HZ2ZZZZ Detoxification Services for Substance Abuse Treatment (ICD-10-PCS; principal; 2019-05-29)
DX: F10.230 Alcohol dependence with withdrawal, uncomplicated (principal); F14.20 Cocaine dependence, uncomplicated; F17.210 Nicotine dependence, cigarettes, uncomplicated; F19.282 Other psychoactive substance dependence with psychoactive substance-induced sleep disorder; F19.280 Other psychoactive substance dependence with psychoactive substance-induced anxiety disorder; F33.9 Major depressive disorder, recurrent, unspecified; F41.8 Other specified anxiety disorders; G47.00 Insomnia, unspecified; E87.6 Hypokalemia; L30.9 Dermatitis, unspecified; L71.9 Rosacea, unspecified
CPT/HCPCS: 36415; 80053; 81025; 85027; 86593